=== PATIENT | female | born 1955 | race Two or more races ===

== ENCOUNTER 2021-02-18 11:32 | Outpatient (REF) | payer MEDICAID, SELFPAY ==
--- NOTE | ~2021-02-18 | MM_ITS ---
EXAMINATION: MM SCREENING DIGITAL BREAST TOMOSYNTHESIS, BILATERAL CLINICAL INFORMATION: Screening. Asymptomatic. The lifetime risk of breast cancer based on the Tyrer-Cuzick Model is 5%. COMPARISON: Mammography: 08/01/2018, 07/16/2017, 04/21/2016 TECHNIQUE: Digital breast tomosynthesis is performed in both the craniocaudal and mediolateral oblique views along with computer-aided detection (CAD). Synthesized 2D images are generated from the tomosynthesis. FINDINGS: There are scattered areas of fibroglandular density (ACR BI-RADS breast composition Category b). There are no significant masses, abnormal calcifications, or other abnormalities. Fine fibronodular parenchymal pattern is stable from prior studies. No developing density. There are grouped benign coarse calcifications again seen anterior 12:00 left breast consistent with degenerating fibroadenoma. No significant changes. MM/MM tomosynthesis screening BI IMPRESSION: No mammographic evidence of malignancy. ASSESSMENT: BI-RADS 2: Benign RECOMMENDATION: Routine annual mammography screening. This patient's information was entered into a reminder system with a target due date for their next mammogram.
== END 2021-02-18 11:33 | disposition home or self-care (01) ==
LOC: HO.MAMMO 11:32
PROVIDERS: Visit Provider Family Medicine
DX: Z12.31 Encounter for screening mammogram for malignant neoplasm of breast (principal)
CPT/HCPCS: 77063; 77067

== ENCOUNTER 2021-02-18 12:22 | Outpatient (REF) | payer MEDICAID, SELFPAY ==
--- NOTE | 2021-02-18 | PFT_ITS ---
Forced vital capacity FEV1, [id number], and MVV are all normal. Post bronchodilator therapy, there is no significant change. Total lung capacity and residual volume normal. Diffusion capacity normal. CONCLUSION: Normal pulmonary function test. No obstructive or restrictive pulmonary disease is noted. MD WILLIAM Lam/MODL / [id number]
== END 2021-02-18 12:23 | disposition home or self-care (01) ==
LOC: HO.RESP 12:22
PROVIDERS: PCP Family Medicine; Visit Provider Family Medicine
DX: R05 Cough (principal)
CPT/HCPCS: 94060; 94727; 94729

== ENCOUNTER 2022-01-17 10:54 | Outpatient (REF) | payer MEDICARE, MEDICAID, SELFPAY ==
--- NOTE | ~2022-01-17 | XR_ITS ---
EXAMINATION: XR SHOULDER, RIGHT CLINICAL INFORMATION: Right shoulder pain. COMPARISON: 06/16/2010 TECHNIQUE: AP external rotation, Grashey, scapular Y, and axillary views of the right shoulder. FINDINGS: There is no evidence of acute fracture or dislocation of the right shoulder. There is mild spurring without loss of glenohumeral joint space. There is bony spur at site of insertion of the supraspinatus tendon on the humeral head. Patient has developed a large inferior acromial spur. No widening of the coracoclavicular space is seen. XR/XR shoulder RT min 2V IMPRESSION: No acute fracture or dislocation of the right shoulder. Prominent inferior acromial spur.
== END 2022-01-17 10:55 | disposition home or self-care (01) ==
LOC: HO.XRAY 10:54
PROVIDERS: PCP Internal Medicine; Visit Provider Registered Nurse Community Health
DX: M25.511 Pain in right shoulder (principal)
CPT/HCPCS: 73030

== ENCOUNTER 2022-02-21 13:56 | Outpatient (REF) | payer MEDICARE, MEDICAID, SELFPAY ==
--- NOTE | ~2022-02-21 | MM_ITS ---
EXAMINATION: MM SCREENING DIGITAL BREAST TOMOSYNTHESIS, BILATERAL CLINICAL INFORMATION: Screening. Asymptomatic. The lifetime risk of breast cancer based on the Tyrer-Cuzick Model is 4%. COMPARISON: Mammography: 02/18/2021, 08/01/2018, 07/16/2017 TECHNIQUE: Digital breast tomosynthesis is performed in both the craniocaudal and mediolateral oblique views along with computer-aided detection (CAD). Synthesized 2D images are generated from the tomosynthesis. FINDINGS: There are scattered areas of fibroglandular density (ACR BI-RADS breast composition Category b). There are no significant masses, abnormal calcifications, or other abnormalities. No significant changes from prior exams. The axilla are unremarkable. MM/MM tomosynthesis screening BI IMPRESSION: No mammographic evidence of malignancy. ASSESSMENT: BI-RADS 1: Negative RECOMMENDATION: Routine annual mammography screening. This patient's information was entered into a reminder system with a target due date for their next mammogram.
== END 2022-02-21 13:57 | disposition home or self-care (01) ==
LOC: HO.MAMMO 13:56
PROVIDERS: Visit Provider Family Medicine
DX: Z12.31 Encounter for screening mammogram for malignant neoplasm of breast (principal)
CPT/HCPCS: 77063; 77067

== ENCOUNTER 2022-04-05 11:00 | Outpatient (RCR) | payer MEDICARE, MEDICAID, SELFPAY ==
[2022-03-10 14:11] VITALS: BP 138/63; PULSE 72; O2SAT 97
== END 2022-06-14 15:00 | disposition home or self-care (01) ==
LOC: HO.PT 11:00
PROVIDERS: PCP Internal Medicine; Visit Provider Internal Medicine
DX: M25.511 Pain in right shoulder (principal)
CPT/HCPCS: 97110; 97162

== ENCOUNTER → 2023-02-09 12:50 | Outpatient (REF) | payer MEDICARE, SELFPAY ==
--- NOTE | 2023-02-09 12:54 | CA_ITS ---
Transthoracic Echocardiogram Patient (Last, First, Middle): Dixie Murphy M Gender: Female Date of : 1955 Age: 68 Procedure Date: 02/09/2023 Procedure Type: Transthoracic Echocardiogram Location: OP Height: 160.02 cm Weight: 79.83 kg BSA: 1.83 m2 Heart Rate: bpm BP: 130 / 80 mmHg Mix Chemist: TO Referring MD: Liliya P[place] Symptoms: R42 DIZZINESS WITH EXERTION Study Quality: Fair/Contrast ECG Rhythm: Sinus Conclusions: - The left ventricular systolic function is normal. The calculated ejection fraction is 61% by biplane method. - No obvious valvular pathology seen on this study. Findings Procedure Information Contrast agent, definity, is being given per protocol without apparent complications. Left Ventricle Normal left ventricular cavity size. The left ventricular systolic function is normal. The calculated ejection fraction is 61% by biplane method. There is no evidence of regional wall motion abnormalities. Diastolic function is normal for age. There is mild septal and mild basal asymmetric hypertrophy. Right Ventricle Normal right ventricular cavity size and systolic function. Atria Both atria are normal in size. Aortic Valve There is a normal trileaflet aortic valve. There is no aortic valve stenosis. There is no aortic valve regurgitation. Mitral Valve The mitral valve appears normal. There is no mitral valve regurgitation. There is no mitral valve stenosis. Pulmonic Valve The pulmonic valve is likely normal. Tricuspid Valve Normal tricuspid valve structure. There is trace tricuspid valve regurgitation. There is no evidence of pulmonary hypertension. Great Vessels The asc aorta is normal in size. Venous The inferior vena cava is normal in size and collapses greater than 50% with inspiration. Pericardium/Pleural There is no evidence of pericardial effusion. Prior Study Comparison No prior study available for comparison. Recommendations, Care & Conclusions No obvious valvular pathology seen on this study. Measurements 2D Linear Measurements IVSd: 1.26 0.6-0.9/0.6-1.0 cm LVIDd: 3.98 3.9-5.3/4.2-5.9 cm LVIDd Index: 2.17 2.4-3.2/2.2-3.1 cm/m2 LVIDs: 2.80 2.0-3.6 cm LVPWd: 0.85 0.7-1.1 cm LA Diam: 2.80 2.7-3.8/3.0-4.0 cm LAIDs Index: 1.53 1.5-2.3 cm/m2 LV Mass: 168.76 67-162/88-224 g LV Mass Index: 92.22 43-95/49-115 g/m2 LVOT Diam: 2.00 3.0+(-)1.3 cm 2D Systolic Function EF 4C: 58.50 >55% EF 2C: 62.50 >55% EF BiP: 61.30 >55% Mitral Valve MV Pk E: 0.78 MV PK A: 0.61 MV Decel Time: 177.00 E/A: 1.30 E'Lateral: 10.00 E'Medial: 7.40 E/E' Med: 10.50 E/E' Lat: 7.80 PHT: 52.00 MVA PHT: 4.23 Decel [place]: 4.40 Aortic Valve AoV Pk Louie: 1.23 AoV Mn Louie: 0.82 AoV VTI: 0.24 AoV Pk Grad: 6.00 Aov Mn Grad: 3.00 TINO Cont.VTI: 2.93 LVOT LVOT Pk Louie: 1.12 LVOT Mn Louie: 0.73 LVOT VTI: 0.22 LVOT Pk Grad: 5.00 LVOT Mn Grad: 3.00 LVOT Diam: 2.00 LVOT Area: 3.14 Diastolic Function MV Pk E: 0.78 MV Pk A: 0.61 E/A: 1.30 E'Medial: 7.40 E/E' Med: 10.50 E' Laterial: 10.00 E/E' Lat: 7.80 Right Ventricle TAPSE (mm): 20.70 TVS' Louie: 10.90 Tricuspid Valve RA Press: 3.00 Great Vessels Aorta Sinus of Valsalva: 3.06 2.0-3.5 cm Ao Asc: 2.70 2.1-3.4 cm Updated in Other Vendor System with Status of Final Jb Tavares MD electronically signed on 02/10/2023 1:36:21 PM with status of Final
== END ==
LOC: HO.CARD 12:50
PROVIDERS: PCP Registered Nurse; Visit Provider Registered Nurse
DX: R42 Dizziness and giddiness (principal)
CPT/HCPCS: 93306; Q9957

== ENCOUNTER 2023-02-27 13:43 | Outpatient (REF) | payer MEDICARE, SELFPAY ==
--- NOTE | ~2023-02-27 | MM_ITS ---
EXAMINATION: MM SCREENING DIGITAL BREAST TOMOSYNTHESIS, BILATERAL CLINICAL INFORMATION: Screening. Asymptomatic. The lifetime risk of breast cancer based on the Tyrer-Cuzick Model is 3.7%. COMPARISON: Mammography: This study is compared with prior exams dating back to 2018. TECHNIQUE: Digital breast tomosynthesis is performed in both the craniocaudal and mediolateral oblique views along with computer-aided detection (CAD). Synthesized 2D images are generated from the tomosynthesis. FINDINGS: There are scattered areas of fibroglandular density (ACR BI-RADS breast composition Category b). There are no significant masses, abnormal calcifications, or other abnormalities. MM/MM tomosynthesis screening BI IMPRESSION: No mammographic evidence of malignancy. ASSESSMENT: BI-RADS BI-RADS 1 - Negative RECOMMENDATION: Routine annual mammography screening. 1 year F/U This examination should not preclude the clinical evaluation of a suspicious palpable abnormality. This patient's information was entered into a reminder system with a target due date for their next mammogram.
== END 2023-02-27 13:44 | disposition home or self-care (01) ==
LOC: HO.MAMMO 13:43
PROVIDERS: PCP Registered Nurse; Visit Provider Registered Nurse
DX: Z12.31 Encounter for screening mammogram for malignant neoplasm of breast (principal)
CPT/HCPCS: 77063; 77067

== ENCOUNTER → 2023-02-27 14:00 | Outpatient (BNV) | payer MEDICARE, SELFPAY | PROVIDERS: PCP Registered Nurse; Visit Provider Radiology Diagnostic Radiology | DX: Z12.31 Encounter for screening mammogram for malignant neoplasm of breast (principal) | CPT/HCPCS: 77063; 77067 ==

== ENCOUNTER 2023-03-01 20:52 | Outpatient (REF) | payer MEDICARE, SELFPAY ==
[2023-03-09 03:19] LABS: HPV mRNA E6/E7 rflx Not Detected (Not Detected)
== END 2023-03-01 20:53 | disposition home or self-care (01) ==
LOC: HO.LNP 20:52
PROVIDERS: Visit Provider Registered Nurse
DX: Z12.4 Encounter for screening for malignant neoplasm of cervix (principal); Z11.51 Encounter for screening for human papillomavirus (HPV)
CPT/HCPCS: 87624; 88142

== ENCOUNTER 2023-07-26 10:25 | Outpatient (REF) | payer SELFPAY ==
[2023-07-26 11:30] LABS: MANUAL DIFF FLAG NO
[2023-07-26 11:44] LABS: Basophils Absolute Auto 0.1 X10*3/uL (0.0-0.2); Basophils Percent Auto 0.7 % (0-2); Eosinophils Absolute Auto 0.3 X10*3/uL (0.0-0.4); Eosinophils Percent Auto 4.2 % (0-4); Hematocrit 38.3 % (37.0-47.0); Hemoglobin 12.8 g/dl (12.0-16.0); Imm Gran Abs Auto 0.02 X10*3/uL (0.00-0.03); Imm Gran Pct Auto 0.2 % (0.0-0.4); Lymphocytes Absolute Auto 2.2 X10*3/uL (1.2-4.9); Lymphocytes Percent Auto 27.1 % (20-40); Mean Corpuscular HGB Conc 33.4 g/dl (31.0-35.0); Mean Corpuscular Volume 89.7 fL (80.0-98.0); Mean Platelet Volume 10.7 fL (9.4-12.3); Monocytes Absolute Auto 0.6 X10*3/uL (0.1-1.2); Monocytes Percent Auto 7.2 % (2-11); Neutrophils Absolute Auto 4.8 x10*3/uL (2.0-8.3); Neutrophils Percent Auto 60.6 % (45-73); Platelet Count 278 X10*3/uL (160-400); Red Blood Count 4.27 X10*6/uL (4.20-5.50); Red Cell Distribution Width 12.1 % (11.0-16.0)
[2023-07-26 12:47] LABS: Alanine Aminotransferase 16 U/L (0-31); Albumin Level 4.1 g/dL (3.5-5.0); Alkaline Phosphatase 99 U/L (39-117); Anion Gap 14 (12-20); Aspartate Amino Transferase 18 U/L (5-31); Bilirubin Total 0.7 mg/dL (0.0-1.0); Blood Urea Nitrogen 14 mg/dL (9-16); Calcium 9.6 mg/dL (8.4-10.2); Carbon Dioxide 26 mmol/L (22-29); Chloride 106 mmol/L (96-108); Cholesterol 185 mg/dL (<200); Estimated Glomerular Filt Rate > 60; Glucose Random 87 mg/dL (60-115); HDL Cholesterol 32 mg/dL (>40); LDL Cholesterol Calculated 118 mg/dL (<100); Sodium 142 mmol/L (135-145); Total Protein 8.3 g/dL (6.5-8.0); Triglycerides 177 mg/dL (<150)
[2023-07-26 13:08] LABS: HBc Num1 0.07 S/CO (0.00-0.79); Hepatitis B Core Antibody Nonreactive (Nonreactive); ~HepC Num1 0.14 S/CO (0.00-0.79); ~Hepatitis C Antibody Nonreactive (Nonreactive)
[2023-07-26 13:21] LABS: Folate 15.2 ng/mL (> or = 4.0); Vitamin B12 589 pg/mL (200-900)
[2023-07-26 13:53] LABS: Creatinine Urine 304.65 mg/dL; Microalbum/Creatinine Ratio Ur 8.2 ug/mg cr (<30)
== END 2023-07-26 10:26 | disposition home or self-care (01) ==
LOC: HO.HHCL 10:25
PROVIDERS: Visit Provider Nurse Practitioner
DX: Z00.00 Encounter for general adult medical examination without abnormal findings (principal); E11.9 Type 2 diabetes mellitus without complications; I10 Essential (primary) hypertension
CPT/HCPCS: 36415; 80053; 80061; 82043; 82570; 82607; 82746; 85025; 86704; 86803

== ENCOUNTER 2023-08-30 13:10 | Outpatient (REF) | payer MEDICARE, SELFPAY ==
--- NOTE | ~2023-08-30 | MM_ITS ---
EXAMINATION: BONE DENSITOMETRY CLINICAL INDICATION: Post menopausal. Encounter for screening for osteoporosis. COMPARISON: Previous BD dated 09/09/2009 and baseline BD dated 07/02/2007. TECHNIQUE: Using a [employer] DXA System (software version: 13.1) manufactured by [employer], dual-energy x-ray absorptiometry was performed of the lumbar spine and left hip. The images are of good technical quality. Summary results are attached. FINDINGS: AP SPINE L1-L3 (excluding L4): The data of L1-L4 has been changed to exclude the L4 vertebral body, because degenerative sclerosis at this level may cause overestimation of lumbar spine density. Current: BMD 1.244 g/cm2, Z-score 1.9, T-score 0.6, normal, 3.4% decrease from previous, 8.1% decrease from baseline (<5% change is not significant). Prior: BMD 1.288 g/cm2. Baseline: BMD 1.353 g/cm2. LEFT FEMUR, NECK: Current: BMD 0.969 g/cm2, Z-score 0.9, T-score -0.5, normal. Prior: BMD 1.052 g/cm2. Baseline: BMD 1.108 g/cm2. LEFT FEMUR, TOTAL: Current: BMD 1.008 g/cm2, Z-score 1.1, T-score 0.0, normal, 5.1% decrease from previous, 8.4% decrease from baseline (<5% change is not significant). Prior: BMD 1.062 g/cm2. Baseline: BMD 1.100 g/cm2. IDENTIFIED RISK FACTORS: Secondary osteoporosis (early menopause). HISTORY OF FRACTURE: None listed. MEDICATIONS: Calcium supplement and/or multivitamin. MM/XR DEXA axial skeleton IMPRESSION: 1. DIAGNOSIS: Normal bone density based on the lowest T-score value of -0.5 in the femoral neck applying World Health Organization criteria. 2. 10-YEAR FRACTURE RISK PREDICTION, FRAX: According to the guidelines, FRAX calculation should only be performed on patients in the osteopenia bone density category.?Therefore, FRAX was not performed on this patient.? 3. Treatment Recommendations: NOF guidelines recommend consideration for treatment in postmenopausal women and men age 50 and older presenting with the following: -A hip or vertebral (clinical or morphometric) fracture. -T-score less than or equal to -2.5 at the femoral neck or spine after appropriate evaluation to exclude secondary causes. -Low bone mass at the hip or spine and a 10-year fracture probability by FRAX of greater than or equal to 3% for hip fracture or greater than or equal to 20% for major osteoporotic fracture based on the [place] adapted WHO algorithm. 4. Other Recommendations: All treatment decisions require clinical judgment and consideration of individual patient factors, including patient preferences, comorbidities, previous drug use, risk factors not captured in the FRAX model (e.g. frailty, falls, vitamin D deficiency, increased bone turnover, interval significant decline in bone density) and possible under or overestimation of fracture risk by FRAX. FUTURE SCAN RECOMMENDATION: People with diagnosed cases of osteoporosis or at high risk for fracture should have regular bone mineral density tests. For patients eligible for Medicare, routine testing is allowed once every 2 years. The testing frequency can be increased to one year for patients who have rapidly progressing disease, those who are receiving or discontinuing medical therapy to restore bone mass, or have additional risk factors.
== END 2023-08-30 13:11 | disposition home or self-care (01) ==
LOC: HO.MAMMO 13:10
PROVIDERS: PCP Nurse Practitioner; Visit Provider Nurse Practitioner
DX: Z13.820 Encounter for screening for osteoporosis (principal); Z78.0 Asymptomatic menopausal state
CPT/HCPCS: 77080

== ENCOUNTER 2024-01-02 11:13 | Outpatient (REF) | payer MEDICARE, SELFPAY ==
[2024-01-02 13:58] LABS: Alanine Aminotransferase 16 U/L (0-31); Albumin Level 3.9 g/dL (3.5-5.0); Alkaline Phosphatase 85 U/L (39-117); Anion Gap 13 (12-20); Aspartate Amino Transferase 18 U/L (5-31); Bilirubin Total 0.7 mg/dL (0.0-1.0); Blood Urea Nitrogen 16 mg/dL (9-16); Calcium 9.7 mg/dL (8.4-10.2); Carbon Dioxide 28 mmol/L (22-29); Chloride 103 mmol/L (96-108); Cholesterol 216 mg/dL (<200); Estimated Glomerular Filt Rate > 60; Glucose Random 98 mg/dL (60-115); HDL Cholesterol 37 mg/dL (>40); LDL Cholesterol Calculated 138 mg/dL (<100); Sodium 140 mmol/L (135-145); TSH reflex Free T4 0.62 uIU/mL (0.32-4.0); Total Protein 8.2 g/dL (6.5-8.0); Triglycerides 206 mg/dL (<150)
[2024-01-02 14:23] LABS: Creatinine Urine 261.78 mg/dL; Microalbum/Creatinine Ratio Ur 6.8 ug/mg cr (<30)
== END 2024-01-02 11:14 | disposition home or self-care (01) ==
LOC: HO.HHCL 11:13
PROVIDERS: Visit Provider Nurse Practitioner
DX: E11.9 Type 2 diabetes mellitus without complications (principal); I10 Essential (primary) hypertension
CPT/HCPCS: 36415; 80053; 80061; 82043; 82570; 84443

== ENCOUNTER → 2024-01-07 11:45 | Outpatient (BNVA) | payer MEDICARE, SELFPAY | PROVIDERS: PCP Nurse Practitioner; Visit Provider Nurse Practitioner Family ==

== ENCOUNTER 2024-02-29 13:23 | Outpatient (REF) | payer MEDICARE, SELFPAY ==
--- NOTE | ~2024-02-29 | MM_ITS ---
EXAMINATION: MM SCREENING DIGITAL BREAST TOMOSYNTHESIS, BILATERAL CLINICAL INFORMATION: Screening. Asymptomatic. COMPARISON: Mammography: This study is compared with prior exams dating back to 2018. TECHNIQUE: Digital breast tomosynthesis is performed in both the craniocaudal and mediolateral oblique views along with computer-aided detection (CAD). Synthesized 2D images are generated from the tomosynthesis. FINDINGS: There are scattered areas of fibroglandular density (ACR BI-RADS breast composition Category b). There are no significant masses, abnormal calcifications, or other abnormalities. A small amount of coarse, benign calcification is present in each breast. MM/MM tomosynthesis screening BI IMPRESSION: No mammographic evidence of malignancy. ASSESSMENT: BI-RADS BI-RADS 2 - Benign Findings RECOMMENDATION: Routine annual mammography screening. 1 year F/U This examination should not preclude the clinical evaluation of a suspicious palpable abnormality. This patient's information was entered into a reminder system with a target due date for their next mammogram.
== END 2024-02-29 13:24 | disposition home or self-care (01) ==
LOC: HO.MAMMO 13:23
PROVIDERS: Visit Provider Nurse Practitioner
DX: Z12.31 Encounter for screening mammogram for malignant neoplasm of breast (principal)
CPT/HCPCS: 77063; 77067

== ENCOUNTER → 2024-02-29 13:45 | Outpatient (BNV) | payer MEDICARE, SELFPAY | PROVIDERS: Visit Provider Radiology Diagnostic Radiology | DX: Z12.31 Encounter for screening mammogram for malignant neoplasm of breast (principal) | CPT/HCPCS: 77063; 77067 ==

== ENCOUNTER 2024-03-28 14:22 | Outpatient (REF) | payer MEDICARE, SELFPAY ==
[2024-03-28 16:35] LABS: Anion Gap 13 (12-20); Blood Urea Nitrogen 16 mg/dL (9-16); Carbon Dioxide 28 mmol/L (22-29); Chloride 104 mmol/L (96-108); Estimated Glomerular Filt Rate > 60; Glucose Random 88 mg/dL (60-115); Potassium 3.9 mmol/L (3.3-5.1); Sodium 141 mmol/L (135-145)
== END 2024-03-28 14:23 | disposition home or self-care (01) ==
LOC: HO.HHCL 14:22
PROVIDERS: Visit Provider Nurse Practitioner
DX: R25.2 Cramp and spasm (principal)
CPT/HCPCS: 36415; 80048

== ENCOUNTER 2024-09-17 10:09 | Outpatient (REF) | payer MEDICARE, SELFPAY ==
[2024-09-17 11:55] LABS: Anion Gap 11 (12-20); Blood Urea Nitrogen 15 mg/dL (9-16); Calcium 9.6 mg/dL (8.4-10.2); Carbon Dioxide 28 mmol/L (22-29); Chloride 105 mmol/L (96-108); Cholesterol 116 mg/dL (<200); Estimated Glomerular Filt Rate > 60; Glucose Random 97 mg/dL (60-115); HDL Cholesterol 33 mg/dL (>40); LDL Cholesterol Calculated 60 mg/dL (<100); Potassium 4.2 mmol/L (3.3-5.1); Sodium 140 mmol/L (135-145); Triglycerides 118 mg/dL (<150)
== END 2024-09-17 10:10 | disposition home or self-care (01) ==
LOC: HO.HHCL 10:09
PROVIDERS: Visit Provider Nurse Practitioner
DX: I10 Essential (primary) hypertension (principal); E11.9 Type 2 diabetes mellitus without complications
CPT/HCPCS: 36415; 80048; 80061

== ENCOUNTER 2025-01-07 11:52 | Outpatient (REF) | payer MEDICARE, SELFPAY ==
--- OUTSIDE RECORDS SUMMARY | 2025-01-07 13:01 | XMS_ITS | Encounter Summary ---
Author Organization [employer] Address [address] [facility] [address] [place] [address] Care Team Providers Care Jig Bore Operator Name Role Phone Daija Concepcion NP Primary Care Provider [phone] Reason for Visit * Reason Comments Follow-up Encounter Details Date Type Department Care Team ([facility] st Contact Info) Description 01/07/2025 11:00 AM EDT Office Visit [facility] [address] [place] [address] Daija Concepcion NP [address] [place] [address] Essential hypertension (Primary Dx); Type 2 diabetes mellitus without complication, without long-term current use of insulin ([facility]); Routine adult health maintenance Social History Tobacco Use Types Packs/Day Years Used Date Smoking Tobacco: Never Passive Smoke Exposure: Past Smokeless Tobacco: Never Comments:Mother smoke a lot when she was little Alcohol Use Standard Drinks/Week Comments Never 0 (1 standard drink = 0.6 oz pur e alcohol) Depression Answer Date Recorded Patient Health Questionnaire-9 Score 1 01/07/2025 Patient Health Questionnaire-9 Score 1 01/07/2025 Last PHQ-9: Questionnaire Data Not on file 0 01/07/2025 Housing Stability Answer Date Recorded What is your housing situation today? I have alejandro alvarado 01/07/[address] you li ve. Do you have problems with any of the following? None of the above 01/07/2025 Food Insecurity Answer Date Recorded Within the past 12 months, y ou worried that your food would run out before you got money to buy more: Sometimes True 2024 Within the past 12 months,th e food you bought just didn't last and you didn't have enough money to get more: Never True 01/07/2025 Transportation Answer Date Recorded In the past 12 months, has l ack of transportation kept you from medical appts, meetings, work or from getting things needed for daily living? No 01/07/2025 Utilities Answer Date Recorded In the past 12 months, has t he electric, gas, oil or water company threatened to shut off services in your home? No 01/07/2025 Depression Answer Date Recorded Patient Health Questionnaire-2 Score 0 01/07/2025 Internet Access Answer Date Recorded Internet Access Q1 Yes 01/07/2025 Internet Access Q2 Not on file 01/07/2025 Comments Unknown Sex and Gender Information Value Date Recorded Sex Assigned at Female 06/19/2022 10:14 AM EDT Legal Sex Female 10:14 AM EDT Gender Identity Female 06/19/2022 10:14 AM EDT Sexual Orientation Don't know 06/19/2022 10 :14 AM EDT documented as of this encounter Last Filed Vital Signs Vital Sign Reading Time Taken Comments Blood Pressure 139/77 01/07/2025 11:06 AM EDT Pulse 90 01/07/2025 11:06 AM EDT Temperature 37 ??C (98.6 ??F) 01/07/2025 11:06 AM EDT Respiratory Rate 20 01/07/2025 11:06 AM EDT Oxygen Saturation 98% 01/07/2025 11:06 AM EDT Inhaled Oxygen Concentration - - Weight 69.6 kg (153 lb 6.4 oz) 01/07/2025 11:06 AM EDT Height 160 cm (5' 3 ) 01/07/2025 11:06 AM EDT Body Mass Index 27.17 01/07/2025 11:06 AM EDT documented in this encounter Functional Status * Over the past 2 weeks, how often have you been bothered by any of the following problems? Question Answer Date of Assessment Author Patient Health Questionnaire -2 Score 0 01/07/2025 11:43 AM EDT Cailin Ramos MA * Little interest or pleasure in doing things Answer Date of Assessment Author Not at all 01/07/2025 11:43 AM EDT Cailin Ramos MA * Feeling down, depressed, or hopeless Answer Date of Assessment Author Not at all 01/07/2025 11:43 AM Cailin Roman MA * Trouble falling or staying asleep, or sleeping too much Answer Date of Assessment Author Several days 01/07/2025 11:43 AM Cailin Roman MA * Feeling tired or having little energy Answer Date of Assessment Author Not at all 01/07/2025 11:43 AM Cailin Roman MA * Poor appetite or overeating Answer Date of Assessment Author Not at all 01/07/2025 11:43 AM Cialin Roman MA * Feeling bad about yourself - or that you are a failure or have let yourself or your family down Answer Date of Assessment Author Not at all 01/07/2025 11:43 AM Cailin Roman MA * Trouble concentrating on things, such as reading the newspaper or watching television Answer Date of Assessment Author Not at all 01/07/2025 11:43 AM Cailin Roman MA * Moving or speaking so slowly that other people could have noticed? Or the opposite - being so fidgety or restless that you have been moving around a lot more than usual. Answer Date of Assessment Author Not at all 01/07/2025 11:43 AM Cailin Roman MA * Thoughts that you would be better off or hurting yourself in some way Answer Date of Assessment Author Not at all 01/07/2025 11:43 AM Cailin Roman MA * Patient Health Questionnaire-9 Score Answer Date of Assessment Author 1 01/07/2025 11:43 AM Cailin Roman MA * How difficult have these problems made it for you to do your work, take care of things at home, or get along with other people? Answer Date of Assessment Author Not difficult at all 01/07/2025 11:43 AM Cailin Mann MA * Over the last 2 weeks, how often have you been bothered by any of the following problems? Question Answer Date of Assessment Author Feeling nervous, anxious, or on edge 0 01/07/2025 11:43 AM EDT Cailin Ramos MA Not being able to stop or co ntrol worrying 0 01/07/2025 11:43 AM EDT Cailin Ramos MA Worrying too much about diff erent things 1 01/07/2025 11:43 AM EDT Cailin Ramos MA Trouble relaxing 0 01/07/2025 11:43 AM EDT Cailin Ramos MA Being so restless that it is hard to sit still 0 01/07/2025 11:43 AM EDT Cailin Ramos MA Becoming easily annoyed or irritable 0 01/07/2025 11:43 AM EDT Cailin Ramos MA Feeling afraid as if somethi ng awful might happen 0 01/07/2025 11:43 AM EDT Cailin Ramos MA YOANDY-7 Total Score 1 01/07/2025 11:43 AM EDT Cailin Ramos MA documented as of this encounter Plan of Treatment Upcoming Encounters Date Type Department Care Team (Late st Contact Info) Description 01/09/2025 11:00 AM EDT Nurse Only [facility] [address] [place] [address] Scheduled Orders Name Type Priority Associated Diagnoses Orde r Schedule Basic Metabolic Panel Lab Routine Essential hypertension Type 2 diabetes mellitus without complication, without long-term current use of insulin ([facility]) Expected: 01/07/2025 (Approximate), Expires: 01/07/2026 Albumin, Random Urine W/Creatinine Lab Routine Essential hypertension Type 2 diabetes mellitus without complication, without long-term current use of insulin ([facility]) Expected: 01/07/2025 (Approximate), Expires: 01/07/2026 documented as of this encounter Procedures Procedure Name Priority Date/Time Associated Diagnosis Comments POCT GLYCATED HEMOGLOBIN, TOTAL Routine 01/07/2025 11:35 AM EDT Type 2 diabetes mellitus without complication, without long-term current use of insulin ([facility]) POCT GLUCOSE Routine 01/07/2025 11:34 AM EDT Type 2 diabetes mellitus without complication, without long-term current use of insulin ([facility]) documented in this encounter Results * POCT HGB A1C (01/07/2025 11:35 AM EDT) Hemoglobin A1C 5.6 4.0 - 6.0 % QC Media Lot # [id number] Lot# Expiration Date Blood 01/07/2025 11:3 5 AM EDT us Daija Concepcion NP POINT OF CARE TEST ENTER/EDIT O RDERABLES Final Result * POCT Glucose (01/07/2025 11:34 AM EDT) Glucose Blood, POC 125 60 - 200 mg/dL QC Media Lot # [id number] Lot# Expiration Date Blood Capillary blood specimen / Unknown 01/07/2025 11:34 AM EDT us Daija Concepcion NP POINT OF CARE TEST ENTER/EDIT O RDERABLES Final Result documented in this encounter Visit Diagnoses Diagnosis Essential hypertension- Primary Unspecified essential hypertension Type 2 diabetes mellitus without complication, without long-term current use of insulin ([facility]) Routine adult health maintenance documented in this encounter Additional Health Concerns Assessment Noted Time PHQ-9 Depression Total Score: 1 01/08/20 25 11:43 AM EDT documented as of this encounter Care Teams Jig Bore Operator Relationship Specialty Start Date End Date Daija Concepcion NP [address] [place] [phone] PCP - General Family Medicine 05/25/23 documented as of this encounter
--- OUTSIDE RECORDS SUMMARY | 2025-01-07 13:01 | XMS_ITS | Encounter Summary ---
Author Organization [employer] Address [address] [place] [address] [place] [address] Care Team Providers Care Generator Assembler Name Role Phone Liliya Martinez Primary Care Provider [phone] Daija Concepcion NP Primary Care Provider [phone] Encounter Details Date Type Department Care Team ([facility] Contact Info) Description 03/27/2023 Abstract [facility] [address] [place] [id number] Liliya Martinez FNP [address] [place] [address] Dept [place] [address] Social History Tobacco Use Types Packs/Day Years Used Date Smoking Tobacco: Never Passive Smoke Exposure: Past Smokeless Tobacco: Never Comments:Mother smoke a lot when she was little Alcohol Use Standard Drinks/Week Comments Never 0 (1 standard drink = 0.6 oz pur e alcohol) Comments Unknown Sex and Gender Information Value Date Recorded Sex Assigned at Female 06/19/2022 10:14 AM EDT Legal Sex Female 10:14 AM EDT Gender Identity Female 06/19/2022 10:14 AM EDT Sexual Orientation Don't know 06/19/2022 10 :14 AM EDT documented as of this encounter Plan of Treatment Upcoming Encounters Date Type Department Care Team ([facility] Contact Info) Description 01/09/2025 11:00 AM EDT Nurse Only [facility] [address] [place] [id number] documented as of this encounter Visit Diagnoses Not on filedocumented in this encounter Care Teams Generator Assembler Relationship Specialty Start Date End Date Liliya Martinez FNP PCP - General Family Medicine 02/17/22 05/24/23 Daija Concepcion NP [address] [place] [id number] PCP - General Family Medicine 05/25/23 documented as of this encounter
--- OUTSIDE RECORDS SUMMARY | 2025-01-07 13:01 | XMS_ITS | Encounter Summary ---
Author Organization [employer] Address [address] [facility] [address] [place] [address] Care Team Providers Care Sander Operator Name Role Phone Daija Concepcion NP Primary Care Provider [phone] Reason for Visit * Reason Onset Date Comments CHART PREP 01/06/2025 Encounter Details Date Type Department Care Team ([facility] st Contact Info) Description 01/06/2025 Telephone [facility] [address] [place] [address] Daija Concepcion NP [address] [place] [address] CHART PREP Social History Tobacco Use Types Packs/Day Years [...] AM EDT documented as of this encounter Miscellaneous Notes * Telephone Encounter - Art Shelton MA - 01/06/2025 2:12 PM EDT Chart Prep Labs: not applicable Images: not applicable Referrals: complete [facility] appt 01/06/25 notes not ready Vaccines due: Covid and DTAP Screenings: colonoscopy and mammogram Overdue care gaps: A1c, Glucose, SBIRT, SDOH, YOANDY-7, and Oral health screening documented in this encounter Plan of Treatment Upcoming Encounters Date Type Department Care Team (Late st Contact Info) Description 01/09/2025 11:00 AM EDT Nurse Only [facility] [address] [place] [address] documented as of this encounter Visit Diagnoses Not on filedocumented in this encounter Additional Health Concerns Assessment Noted Time PHQ-9 Depression Total Score: 0 07/25/20 10:00 AM EST documented as of this encounter Care Teams Sander Operator Relationship Specialty Start Date End Date Daija Concepcion NP [address] [place] [address] PCP - General Family Medicine 05/25/23 documented as of this encounter
--- OUTSIDE RECORDS SUMMARY | 2025-01-07 13:01 | XMS_ITS | Encounter Summary ---
Author Organization [employer] Address [address] [facility] [address] [place] [address] Care Team Providers Care Fire Prevention Research Engineer Name Role Phone Liliya Martinez Primary Care Provider [phone] Daija Concepcion NP Primary Care Provider [phone] Encounter Details Date Type Department Care Team (Late st Contact Info) Description 11/15/2022 Orders Only [facility] [address] [place] [address] Cristin Carrasquillo LPN Social History Tobacco Use Types Packs/Day Years Used Date Smoking Tobacco: Never Assessed Comments Unknown Sex and Gender Information Value [...] Description 01/09/2025 11:00 AM EDT Nurse Only [facility] [address] [place] [address] documented as of this encounter Visit Diagnoses Not on filedocumented in this encounter Care Teams Fire Prevention Research Engineer Relationship Specialty Start Date End Date Liliya Martinez FNP PCP - General Family Medicine 02/17/22 05/24/23 Daija Concepcion NP [address] [place] [address] PCP - General Family Medicine 05/25/23 documented as of this encounter
--- OUTSIDE RECORDS SUMMARY | 2025-01-07 13:01 | XMS_ITS | Clinical Summary ---
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 Active multivitamin-ir cj-pdjikfpt-mpb ic acid (Centrum) chewable tablet Chew 1 tablet in the morning. Active loratadine (Claritin) 10 MG tabletIndicatio ns:Seasonal allergies Take 1 tablet (10 mg) by mouth in the morning. 90 tablet 1 01/20/20 23 Active Blood Glucose Monitoring Suppl (FreeStyle Jackson Lite) w/Device kitIndications: Type 2 diabetes mellitus without complication, without long-term current use of insulin (CMS/HCC) Use to test blood sugar one times daily 1 kit 1 12/19/19 24 Active FREESTYLE LITE test stripIndication s:Type 2 diabetes mellitus without complication, without long-term current use of insulin (CMS/HCC) Use to test blood sugar one times daily 100 each 12 03/28/20 24 025 Active Alcohol Swabs (Alcohol Prep) 70 % padsIndications :Type 2 diabetes mellitus without complication, without long-term current use of insulin (CMS/HCC) USE TO TEST BLOOD SUGAR ONCE DAILY 100 each 11 07/11/20 24 Active FreeStyle lancetsIndicati ons:Type 2 diabetes mellitus without complication, without long-term current use of insulin (CMS/HCC) USE TO TEST BLOOD SUGAR ONE TIME DAILY 100 each 11 07/11/20 24 Active metFORMIN (Glucophage) 500 MG tabletIndicatio ns:Type 2 diabetes mellitus without complication, without long-term current use of insulin (CMS/HCC) Take 1 tablet (500 mg) by mouth with breakfast and with evening meal. 180 tablet 09/10/19 25 Active amLODIPine (Norvasc) 5 MG tablet TAKE 1 TABLET(5 MG) BY MOUTH DAILY 90 tablet 10/23/19 25 Active atorvastatin (Lipitor) 10 MG tablet TAKE 1 TABLET(10 MG) BY MOUTH DAILY 90 tablet 10/23/19 25 Active hydroCHLOROthia zide 12.5 MG tabletIndicatio ns:Essential hypertension TAKE 1 TABLET(12.5 MG) BY MOUTH DAILY 90 tablet 1 12/23/19 25 Active aspirin 81 MG chewable tabletIndicatio ns:Essential hypertension CHEW AND SWALLOW 1 TABLET(81 MG) BY MOUTH DAILY 90 tablet 1 12/23/19 25 Active hydroCHLOROthia zide (HYDRODiuril) 12.5 MG tabletIndicatio ns:Essential hypertension Take 1 tablet (12.5 mg) by mouth Once per day. 30 tablet 11 12/19/19 24 025 Discontinued(Re order (will not trigger notification to Pharmacy)) aspirin 81 MG chewable tabletIndicatio ns:Essential hypertension Chew 1 tablet (81 mg) Once per day. 30 tablet 2 09/10/19 25 025 Discontinued(Re order (will not trigger notification to Pharmacy)) Active Problems Problem Noted Date Diagnosed Date Screening for colon cancer 09/10/2024 Assessment & Plan (09/10/2024 11:06 AM EST): -patient agreeable to screening with cologuard -counseled on 13% false positive and 8% false negative rate and is aware that if the test is positive a diagnostic colonoscopy should be pursued within 3-6 months. -patient informed of need to repeat test in 3 years if negative result -cologuard order placed Mixed hyperlipidemia 09/10/2024 Assessment & Plan (09/10/2024 12:24 PM EST): -repeat fasting labs ordered -continue lipitor 10 mg. Plan to increase dose if no improvement noted Neck mass 03/10/2024 Assessment & Plan (03/10/2024 1:06 PM EDT): -question adenoma, thyroid goiter or lipoma -patient states she noticed it 5 years ago and has had a biposy -will check TSH today -consider soft tissue US with increase in size or characteristics Skin eruption 07/25/2023 Assessment & Plan (07/25/2023 1:45 PM EST): -treated with cefadroxil 500 mg BID x5 days for eruptions on upper arm -eruption on gluteus appears benign -apply warm compress to area. Return to clinic if area is red, increase in size, or drainage present Routine adult health maintenance 01/19/2023 Overview (04/05/2023): Mammogram: 02/27/23 BIRADS 1 Assessment & Plan (12/18/2023 9:19 PM EDT): -Mammogram: 02/27/2023: BI-RADS BI-RADS 1 - Negative -Cervical cancer screenin03/06/2023: Negative for intraephithelial lesion or malignancy; HPV negative -Colonoscopy: has GI appointment 01/07/2024 -Dexa Scan: 08/30/2023: Normal bone density based on T-score -0.5 -Hepatitis C Screen: -HIV Screen: -Immunizations: PCV 20 VAX -Screening Labs: Assessment & Plan (07/25/2023 1:24 PM EST): -last pap 03/06/23 -due for repeat colonoscopy. GI referral placed -DEXA scan ordered for osteoporosis screening -obtained flu shot at [facility]. Will bring documentation to next appointment -RSV vax order sent to [facility]. PCV20 vax received in [place] today -Hepatitis B & C screen ordered today -referred for Seasonal allergies 01/19/2023 Heartburn 01/19/2023 Type 2 diabetes mellitus wit hout complication, without long-term current use of insulin 01/19/2023 Assessment & Plan (09/10/2024 12:20 PM EST): -controlled -A1c 5.7% today and POCT 98 mg/dL -continue current regimen: metformin 500 mg two times daily -diet and exercise reviewed -foot exam completed today with negative results -routine vision screening encouraged -follow-up 3 months Assessment & Plan (03/31/2024 10:23 PM EDT): -patient's diabetes is well controlled -A1c at goal of <7%. POCT A1c 5.7% today; glucose 102 mg/dL -continue metformin 500 mg two times daily -patient is on statin and continues to tolerate well -foot exam completed today. Daily self monitoring encouraged -refills provided for testing supplies -importance of healthy diet and exercise emphasized -follow-up 6 months Assessment & Plan (03/10/2024 12:40 PM EDT): -patients diabetes is well controlled -A1c at goal of <7%. POCT A1c 5.8% today -continue metformin 500 mg two times daily -patient is on statin and continues to tolerate well -encouraged to schedule for routine eye exam with vision provider -foot exam to be completed at next visit. Daily self monitoring advised -refills provided for testing supplies -follow-up 3 months Assessment & Plan (07/25/2023 1:28 PM EST): -Treatment goal >7% per ADA guideline -POCT A1c 5.8 today -stable, continue current regimen -daily foot exams encouraged -Healthy diet and exercise teaching completed: Eat a variety of fruit and vegetables, whole grains such as whole-wheat flour, bulgur (cracked wheat), oatmeal, and brown rice. Intake protein from beans, nuts, fish, and lean meats. Eat low-fat or fat- free dairy products. Limit highly processed foods such as hot dogs, sandwich meat, etc. Engage in minimum of 150 min of moderate intensity exercise weekly -f/u in 3 months Dizziness 01/19/2023 Overview (02/20/2023): 02/09/23 Echo: Conclusions: - The left ventricular systolic function is normal. The calculated ejection fraction is 61% by biplane method. - No obvious valvular pathology seen on this study. Trace tricuspic regurg Essential hypertension 01/12/2023 Assessment & Plan (09/10/2024 12:24 PM EST): -BP stable but above desired goal of <130/80 mmHg -advised two times daily monitoring at home -scheduled 1 week follow-up with nurses with plan to increase amlodipine to 10 mg if home readings persistently elevated more than 50% of the time -discussed low salt/low fat diet -discussed starting low dose aspirin for primary prevention -follow-up 4 months Assessment & Plan (03/10/2024 1:10 PM EDT): -BP above target goal of <130/80 mmHg -elevated office readings today -continue amlodipine 5mg and start hydrochlorothiazide 12.5 mg today -microalbumin: ordered today -daily BP monitoring advised -low salt diet and 30 min moderate intensity daily exercise recommended -Reviewed ED precautions to include chest pain, shortness of breath, severe headache, sudden vision changes or BP >=180/>=120 mmHg. -Call clinic if three or more BP readings >130/80 mmHg. -follow-up with team nurses for BP check in 2 weeks and complete labs -follow-up 3 months Assessment & Plan (07/25/2023 1:38 PM EST): -Not at goal: treatment goal BP <130/80 mmHg (ACC/AHA) -continue amlodipine 5 mg every day -diet & exercise teaching completed as outline below. Advised to eliminate salt from diet -encouraged to monitor and daily home BP readings -labs ordered to eval renal function -f/u in 3 months Resolved Problems Problem Noted Date Diagnosed Date Resolved Date Shoulder pain 01/12/2023 01/19/2023 Infestation by Sarcoptes scabiei calista hominis 3 01/19/2023 Encounters Date Type Department Care Team Description 01/07/2025 11:00 AM EDT Office Visit [facility] [address] [place] [address] Daija Concepcion NP Essential hypertension (Primary Dx); Type 2 diabetes mellitus without complication, without long-term current use of insulin ([facility]); Routine adult health maintenance 01/07/2025 Travel 01/06/2025 Telephone [facility] [address] [place] [address] Daija Concepcion NP CHART PREP 01/06/2025 Travel 12/19/2024 Telephone [facility] [address] [place] [address] Daija Concepcion NP Med Refill 12/19/2024 Refill [facility] [address] [place] [address] Daija Concepcion NP Essential hypertension 10/31/2024 Population Health Risk Score [facility] () Department [address] [place] [phone] Provider, Population Health Generic 10/22/2024 Refill [facility] [address] [facility] [place] [address] Daija Concepcion NP from Last 3 Months Immunizations Immunization Administration Dates Next Due Influenza High-dose Quadriva lent Preservative Free 05/26/2022 Influenza Quadrivalent Adjuvanted 05/23/2023 Influenza injectable quadriv alent IIV4 with preservative 07/01/2018,06/29/2017,04/24/2016 Influenza injectable quadriv alent preservative free 05/20/2021,05/07/2020 Moderna Covid-19 Vaccine 12+ 12/29/2020,12/02/19 21 Pneumococcal Conjugate PCV 20 07/25/2023 TD (adult), 2 Lf tetanus tox oid, preservative free, adsorbed 03/28/2024 Td (adult), 5 Lf tetanus tox oid, preservative free, adsorbed 05/05/2006 Zoster, Recombinant 05/07/2020 Family History Medical History Relation Name Comments Cancer Brother Heart disease Mother Hypertension Mother Relation Name Status Comments Brother Mother Social History Tobacco Use Types Packs/Day Years Used Date Smoking Tobacco: Never Passive Smoke Exposure: Past Smokeless Tobacco: Never Tobacco Cessation:Counseling Given: Not Answered Comments:Mother smoke a lot when she was [...] Don't know 06/19/2022 10 :14 AM EDT Last Filed Vital Signs Vital Sign Reading [...] Mass Index 27.17 01/07/2025 11:06 AM EDT Plan of Treatment Upcoming Encounters Date Type Department Care Team (Late st Contact Info) Description 01/09/2025 11:00 AM EDT Nurse Only [facility] [address] [place] [address] Health Maintenance Due Date Last Done Comments CT Colonography 1955 Colonoscopy 1955 FIT 1955 FOBT 1955 Sigmoidoscopy 1955 Alcohol/Substance Use Screening 1969 Zoster Vaccines (2 of 2) 07/02/2020 05/07/2020 DTaP/Tdap/Td Vaccines (1 - Tdap) 03/29/2024 03/28/2024, 05/05/2006 COVID-19 Vaccine (3 - 2023- season) 2024 12/29/2020, 12/01/2020 Diabetes: Urine Protein Screening 01/01/2025 01/02/2024 Mammogram 02/28/2025 02/29/2024, 02/17, 02/27/2023, Additional history exists Diabetes: Hemoglobin A1C 07/10/2025 025, 09/10/2024, 03/28/2024, Additional history exists Eye Exam 08/03/2025 08/03/2023, 07/20, 08/03/2023, Additional history exists Diabetes: Foot Exam 09/10/2025 09/10/2024, 09/10/2024, 09/10/2024, Additional history exists Lipid Panel 09/17/2025 09/17/2024, 12/18, 07/24/2022 Tobacco Screening 09/17/2025 09/17/2024 Depression Screening 01/07/2026 01/07/2025, 01/08/20 25 SDOH Screening 01/07/2026 01/07/2025 Colorectal Cancer Screening 09/19/2027 FIT DNA/Cologuard 09/19/2027 09/19/2024 RSV Patients and Patients Aged 60 years or older (1 - 1-dose 75+ series) 01/04/2032 Hepatitis C Screening Completed 07/24/2022 HPV/Cotest Discontinued 03/01/2023 Cervical Cancer Screening Discontinued Pap Smear Discontinued 03/06/2023, 03/01/2023 Pneumococcal Vaccine: 50+ Years Completed 07/25/2023 Influenza Vaccine Completed 05/05/2024, , 05/26/2022, Additional history exists HIB Vaccines Aged Out No longer eligi ble based on patient's age to complete this topic HPV Vaccines Aged Out No longer eligi ble based on patient's age to complete this topic Hepatitis A Vaccines Aged Out No long er eligible based on patient's age to complete this topic Hepatitis B Vaccines Aged Out No long er eligible based on patient's age to complete this topic IPV Vaccines Aged Out No longer eligi ble based on patient's age to complete this topic Meningococcal B Vaccine Aged Out No l onger eligible based on patient's age to complete this topic Meningococcal Vaccine Aged Out No edu rogers eligible based on patient's age to complete this topic RSV under 20 months Aged Out No longe r eligible based on patient's age to complete this topic Rotavirus Vaccines Aged Out No longer eligible based on patient's age to complete this topic Procedures Procedure Name Priority Date/Time Associated Diagnosis Comments POCT GLYCATED HEMOGLOBIN, TOTAL Routine 01/07/2025 11:35 AM EDT Type 2 diabetes mellitus without complication, without long-term current use of insulin (CMS/HCC) POCT GLUCOSE Routine 01/07/2025 11:34 AM EDT Type 2 diabetes mellitus without complication, without long-term current use of insulin (CMS/HCC) LAB COLOGUARD?? COLON CANCER SCREEN Routine 09/19/2024 11:53 AM EST Screening for colon cancer LIPID PANEL, STANDARD Routine 09/17/2024 10:11 AM EST Essential hypertension Type 2 diabetes mellitus without complication, without long-term current use of insulin (CMS/HCC) Mixed hyperlipidemia BI MAMMOGRAM SCREENING TOMOSYNTHESIS BILATERAL Routine 02/29/2024 1:44 PM EDT ALBUMIN, RANDOM URINE W/CREATININE Routine 01/02/2024 11:14 AM EDT Essential hypertension HM PAP/HPV Routine 03/06/2023 HPV MRNA E6/E7 REFLEX TO HPV 16, 18/45 Routine 03/01/2023 4:00 PM EDT HEPATITIS C AB W/REFL TO HCV RNA, QN, PCR Routine 07/24/2022 10:19 AM EST from Last 3 Months or Most Recently Relevant to Health Maintenance Results * POCT HGB A1C (01/07/2025 11:35 AM EDT) Hemoglobin A1C 5.6 4.0 - 6.0 % QC Media Lot # [id number] Lot# Expiration Date Blood 01/07/2025 11:3 5 AM EDT Daija Concepcion NP POINT OF CARE TEST ENTER/EDIT O RDERABLES Final Result * POCT Glucose (01/07/2025 11:34 AM EDT) Glucose Blood, POC 125 60 - 200 mg/dL QC Media Lot # [id number] Lot# Expiration Date Blood Capillary blood specimen / Unknown 01/07/2025 11:34 AM EDT us Daija Concepcion NP POINT OF CARE TEST ENTER/EDIT O RDERABLES Final Result * (ABNORMAL) Cologuard?? colon cancer screening (09/19/2024 11:53 AM EST) Cologuard Result Positive( A) Negative 09/27/2024 4:11 AM EST [facility] (CLIA #:[id number]) Comment: POSITIVE TEST RESULT. A positive Cologuard result should be followed with a colonoscopy or visual examination of the colon. The normal value (reference range) for this assay is negative. TEST DESCRIPTION: Composite algorithmic analysis of stool DNA-biomarkers with hemoglobin immunoassay. ?? Quantitative values of individual biomarkers are not reportable and are not associated with individual biomarker result reference ranges. Cologuard is intended for colorectal cancer screening of adults of either sex, 45 years or older, who are at average-risk for colorectal cancer (CRC). Cologuard has been approved for use by the U.S. FDA. The performance of Cologuard was established in a cross sectional study of average-risk adults aged 50-84. Cologuard performance in patients ages 45 to 49 years was estimated by sub-group analysis of near-age groups. Colonoscopies performed for a positive result may find as the most clinically significant lesion: colorectal cancer [4.0%], advanced adenoma (including sessile serrated polyps greater than or equal to 1cm diameter) [20%] or non- advanced adenoma [31%]; or no colorectal neoplasia [45%]. These estimates are derived from a prospective cross-sectional screening study of 10,000 individuals at average risk for colorectal cancer who were screened with both Cologuard and colonoscopy. (Naeem Collins et al, N Engl J Med 2014;370(14):9726-7490.) Cologuard may produce a false negative or false positive result (no colorectal cancer or precancerous polyp present at colonoscopy follow up). A negative Cologuard test result does not guarantee the absence of CRC or advanced adenoma (pre-cancer). The current Cologuard screening interval is every 3 years. ([place] [employer] Society and U.S. Multi-Society Task Force). Cologuard performance data in a 10,000 patient pivotal study using colonoscopy as the reference method can be accessed at the following location: www.[employer]/results. Additional description of the Cologuard test process, warnings and precautions can be found at www.Access [email or web address].[email or web address]. Stool specimen (specimen) 09/19/2024 11:53 AM EST 09/20/2024 12:33 PM EST [facility] MOLECULAR DIAGNOSTICS ORDER IMANI Final Result [facility] (CLIA #:[id number]) [address] [place], [place] [address], * (ABNORMAL) Lipid Panel, Standard (09/17/2024 10:11 AM EST) Triglycerides 118 <150 mg/dL [facility] Comment:Desirable Triglyceri de: less than 150 mg/dLBorderline High Triglyceride 150-199 mg/dLHigh Triglyceride: 200-499 mg/dLVery High Triglyceride: greater than or equal to 5OO mg/dL Cholesterol 116 <200 mg/dL [facility] Comment:Desirable Cholestero l: less than 200 mg/dLBorderline High Cholesterol: 200-239 mg/dLHigh Cholesterol: greater than 239 mg/dL LDL Cholesterol Calculated 60 <100 mg/dL [facility] Comment:Desirable LDL: less than 100 mg/dLNear Optimal/Above Optimal LDL: 110- 129 mg/dLBorderline High LDL: 130-159 mg/dLHigh LDL: 160-189 mg/dLVery High LDL: greater than or equal to 190 mg/dL HDL Cholesterol 33(L) >40 mg/dL [facility] Comment:Desirable HDL: great er than 40 mg/dL Note: This HDL assay may give artificially low results in patients with liver disease. Blood Venous blood specimen / Unknown 09/17/2024 10:11 AM EST 09/17/2024 11:25 AM EST us Daija Concepcion [facility] BLOOD ORDERABLES Final Resu lt [facility] [address] [place] [phone] * BI Mammogram Screening Tomosynthesis Bilateral (02/29/2024 1:44 PM EDT) Anatomical Region Laterality Modality Breast Bilateral Mammography 02/29/2024 1:44 PM EDT Narrative 03/25/2024 10:16 PM EDT ? [facility] [place] ? [address] ?[place] [address] ? Mammography Report ? Signed ? Patient: Dixie Zacarias ?MR# ?? : [id number] ? : 1955 ?Acct:[id number] ? Age/Sex: 69 / F ?ADM Date: 07/12/24 ? Loc: HO.MAMMO ? Attending Dr: Daija Concepcion ? Ordering Physician: Daija Concepcion ?Results: 2Benign Fi ?? ndings ? Date of Service: 02/29/24 ?Follow Up: 1 Year From Orig ?? inal Mammogram ? Procedure(s): MM tomosynthesis screening BI ?? Accession Number(s): [id number] ? cc: Daija Concepcion ? EXAMINATION: ?? MM SCREENING DIGITAL BREAST TOMOSYNTHESIS, BILATERAL ? CLINICAL INFORMATION: ? Screening. Asymptomatic. ? COMPARISON: ?? Mammography: This study is compared with prior exams dating back to ?? 2018. ? TECHNIQUE: ?? Digital breast tomosynthesis is performed in both the craniocaudal and ?? mediolateral oblique views along with computer-aided detection (CAD). ?? Synthesized 2D images are generated from the tomosynthesis. ? FINDINGS: ?? There are scattered areas of fibroglandular density (ACR BI-RADS breast ?? composition Category b). ? There are no significant masses, abnormal calcifications, or other ?? abnormalities. ? A small amount of coarse, benign calcification is present in each ?? breast. ? MM/MM tomosynthesis screening BI ?? IMPRESSION: ?? No mammographic evidence of malignancy. ? ASSESSMENT: ? BI-RADS BI-RADS 2 - Benign Findings ? RECOMMENDATION: ?? Routine annual mammography screening. ? 1 year F/U ? This examination should not preclude the clinical evaluation of a ?? suspicious palpable abnormality. ? This patient's information was entered into a reminder system with a ?? target due date for their next mammogram. ? Dictated By: ?Nakia Junior MD ? Signed By: ?<Electronically signed by Nakia Junior MD in OV> ? 03/25/242212 ? DD/ 1344 ? TD/TT: ? Psychic Reader: ? Procedure Note Donotuseinterpreter, Image - 03/25/2024 [facility] [address] [place] [address] Mammography Report Signed Patient: Dixie Zacarias MMR# : [id number] : 7Acct:[id number] Age/Sex: 69 / FADM Date: 02/29/24 Loc: HO.MAMMO Attending Dr: Daija Concepcion Ordering Physician: Daija ConcepcionResults: 2Benign Oralia ndmikie Date of Service: 02/29/24Follow Up: 1 Year From Orig inal Mammogram Procedure(s): MM tomosynthesis screening BI Accession Number(s): [id number] cc: Daija Concepcion EXAMINATION: MM SCREENING DIGITAL BREAST TOMOSYNTHESIS, BILATERAL CLINICAL INFORMATION: Screening. Asymptomatic. COMPARISON: Mammography: This study is compared with prior exams dating back to 2018. TECHNIQUE: Digital breast tomosynthesis is performed in both the craniocaudal and mediolateral oblique views along with computer-aided detection (CAD). Synthesized 2D images are generated from the tomosynthesis. FINDINGS: There are scattered areas of fibroglandular density (ACR BI-RADS breast composition Category b). There are no significant masses, abnormal calcifications, or other abnormalities. A small amount of coarse, benign calcification is present in each breast. MM/MM tomosynthesis screening BI IMPRESSION: No mammographic evidence of malignancy. ASSESSMENT: BI-RADS BI-RADS 2 - Benign Findings RECOMMENDATION: Routine annual mammography screening. 1 year F/U This examination should not preclude the clinical evaluation of a suspicious palpable abnormality. This patient's information was entered into a reminder system with a target due date for their next mammogram. Dictated By: Nakia Junior MD Signed By: <Electronically signed by Nakia Junior MD in OV> 03/25/24 2213 DD/ 1344 TD/TT: Psychic Reader: us Daija Concepcion NP IMG BI PROCEDURES Edited Result - Final * Albumin, Random Urine W/Creatinine (01/02/2024 11:14 AM EDT) Creatinine, Urine 261.78 mg/dL [facility] Microalbumin Urine 18.0 mg/L [facility] Microalbum Creatinine Ratio Ur 6.8 <30 ug/mg cr [facility] Comment:Albumin/Creatinine R atio Reference Ranges: Normal: < 30 ug/mg creatinine Microalbuminuria: 30 - 300 ug/mg creatinineClinical Albuminuria: > 300 ug/mg creatinine Urine (Urine, Random) 01/02/2024 11:14 AM EDT 01/02/2024 1:24 PM EDT Daija Concepcion NP LAB URINE ORDERABLES Final Resu lt [facility] [address] [place] [address] [phone] * Hm Pap Smear (03/06/2023) Pap Negative for intraephithelial lesion or malignancy Negative for intraephithelial lesion or malignancy, Other Liliya Martinez [facility] Final R esult * HPV mRNA E6/E7 w/Reflex to HPV Genotypes 16, 18/45 (03/01/2023 4:00 PM EDT) HPV nRNA E6/E7 Not Detected Not Detected [facility] Comment:Methodology: Transcr iption-Mediated AmplificationThis assay detects E6/E7 viral messenger RNA (mRNA) from 14high-risk HPV types (16,18,31,33,35,39,45,51,52,56,58,59,66,68).Cervical sources are required for HPV testing.If a vaginal source from a patient who has had atotal hysterectomy with removal of cervix wassubmitted, please contact the testing laboratoryfor alternative testing options.For additional information, please refer [email or web address](This link if provided for information/educational purposes only.)THIS TEST WAS PERFORMED AT:[facility] [place] [phone] APPIAH MD HPV mRNA E6/E7 [facility] HPV 16 RNA [facility] HPV 18/45 RNA [facility] 03/01/2023 4:00 PM EDT 03/05/2023 11:10 AM EDT [facility] CYTOLOGY ORDERABLES Fi nal Result Performing Organization Address City/[facility]/ZIP Co de Phone Number [facility] [address] [place] [address] [phone] * Hepatitis C Antibody with Reflex to HCV, RNA, Quantitative, Real-Time PCR (07/24/2022 10:19 AM EST) Hepatitis C Antibody NON-REACT LAUREL NON-REACT LAUREL [employer] [place] [employer] Index 0.07 <1.00 [employer] [place] [employer] Comment: HCV antibody was non-reactive. There is no laboratory evidence of HCV infection. In most cases, no further action is required. However, if recent HCV exposure is suspected, a test for HCV RNA (test code 99589) is suggested. For additional information please refer to [email or web address].Tysdo/faq/[email or web address] (This link is being provided for informational/ educational purposes only.) 07/24/2022 10:1 9 AM EST 07/24/2022 10:20 AM EST Narrative QUEST - 07/25/2022 9:03 PM EST FASTING:YES FASTING: YES [facility] BLOOD ORDERABLES Final Result Performing Organization Address City/[facility]/ZIP Co de Phone Number [address], [place] [address] [facility] [place] [facility] [address], [facility] [place] [address] from Last 3 Months or Most Recently Relevant to Health Maintenance Insurance MEDICARE [facility] Care Teams Ground Defence Officer Relationship Specialty Start Date End Date Daija Concepcion NP [address] [place] [address] PCP - General Family Medicine 05/25/23
--- OUTSIDE RECORDS SUMMARY | 2025-01-07 13:01 | XMS_ITS | Encounter Summary ---
Author Organization [employer] Address [address] [place], [place] [address] [address] Care Team Providers Care Grand Jury Deputy Sheriff Name Role Phone Liliya Martinez MEDICAL PHYSICIST Primary Care Provider [phone] Daija Concepcion FEDERAL AGENT Primary Care Provider [phone] Reason for Visit * Reason Onset Date Comments Appointment Request 11/30/2022 Encounter Details Date Type Department Care Team (Late st Contact Info) Description 11/30/2022 Telephone [facility] [address] [place] [address] Liliya Martinez, [address] Dept of [place] [address] Appointment Request Social History Tobacco Use Types Packs/Day Years Used Date Smoking Tobacco: Never Assessed Comments Unknown Sex and Gender Information Value Date Recorded Sex Assigned at Female 06/19/2022 10:14 AM EDT Legal Sex Female 10:14 AM EDT Gender Identity Female 06/19/2022 10:14 AM EDT Sexual Orientation Don't know 06/19/2022 10 :14 AM EDT documented as of this encounter Miscellaneous Notes * Telephone Encounter - Tete So - 12/14/2022 4:35 PM EDT Tc from pt requesting to R/S appt on 11/30/22 ( TP ). Please contact pt at [phone] * Telephone Encounter - Monty Holcomb - 11/30/2022 9:14 AM EDT Tc from pt requesting to R/S appt on 11/30/22 ( TP ). Please contact pt at [phone] documented in this encounter Plan of Treatment Upcoming Encounters Date Type Department Care Team (Late st Contact Info) Description 01/09/2025 11:00 AM EDT Nurse Only [facility] [address] [place] [address] documented as of this encounter Visit Diagnoses Not on filedocumented in this encounter Care Teams Grand Jury Deputy Sheriff Relationship Specialty Start Date End Date Liliya Martinez FNP PCP - General Family Medicine 02/17/22 05/24/23 Daija Concepcion NP [address] [place] [address] PCP - General Family Medicine 05/25/23 documented as of this encounter
--- OUTSIDE RECORDS SUMMARY | 2025-01-07 13:01 | XMS_ITS | Encounter Summary ---
Author Organization [employer] Address 75 [facility] 7t [place] [address] Care Team Providers Care Underwriting Operations Manager Name Role Phone Daija Concepcion NP Primary Care Provider [phone] Reason for Visit * Reason Onset Date Comments Pre op 10/23/2023 Encounter Details Date Type Department Care Team ([facility] st Contact Info) Description 10/23/2023 Telephone [facility] [address] [place] [address] Daija Concepcion NP [address] [place] [address] Pre op Social History Tobacco Use Types Packs/Day Years Used Date Smoking Tobacco: Never Passive Smoke Exposure: Past Smokeless Tobacco: Never Comments:Mother smoke a lot when she was little Alcohol Use Standard Drinks/Week Comments Never 0 (1 standard drink = 0.6 oz pur e alcohol) Depression Answer Date Recorded Patient Health Questionnaire-9 Score 0 07/25/2023 Patient Health Questionnaire-9 Score 0 07/25/2023 Last PHQ-9: Questionnaire Data Not on file 1 09/25/2022 Housing Stability Answer Date Recorded What is your housing situation today? I have alejandro alvarado 06/25/[address] you li ve. Do you have problems with any of the following? None of the above 06/25/2023 Food Insecurity Answer Date Recorded Within the past 12 months, y ou worried that your food would run out before you got money to buy more: Never True 06/25/2023 Within the past 12 months,th e food you bought just didn't last and you didn't have enough money to get more: Never True 01/2023 Transportation Answer Date Recorded In the past 12 months, has l ack of transportation kept you from medical appts, meetings, work or from getting things needed for daily living? No 06/25/2023 Utilities Answer Date Recorded In the past 12 months, has t he electric, gas, oil or water company threatened to shut off services in your home? No 06/25/2023 Depression Answer Date Recorded Patient Health Questionnaire-2 Score 0 07/25/2023 Comments Unknown Sex and Gender Information Value Date Recorded Sex Assigned at Female 06/19/2022 10:14 AM EDT Legal Sex Female 10:14 AM EDT Gender Identity Female 06/19/2022 10:14 AM EDT Sexual Orientation Don't know 06/19/2022 10 :14 AM EDT documented as of this encounter Miscellaneous Notes * Telephone Encounter - Royal Brown RN - 10/24/2023 11:15 AM EST T/C to pt. Through [employer] id - [id number] for below message, No answer. LVM to call back [phone]. * Telephone Encounter - Felisha Kruger - 10/24/2023 10:38 AM EST Tc from pt requesting a later time in the day for Pre-op appointment if possible. Please contact pt at [phone] (Uzbek) * Telephone Encounter - Royal Brown RN - 10/23/2023 4:02 PM EST T/C to [phone] for below message, pt. Schedule for pre-op apt. On 11/14. Cuca is going to inform pt. * Telephone Encounter - Lorena Pham - 10/23/2023 11:27 AM EST Date of Surgery: 11/23/23 Surgical procedure being done: cataract surgery right eye Type of anesthesia: Max Lab needed: no EKG: no Surgeon's name: Kimberly Manriquez Facility name: [facility] Surgeon's office number: [phone] [address] Surgeon's office fax number: [phone] Contact name (person you spoke with): Cuca Last office note from surgeon requested: no documented in this encounter Plan of Treatment Upcoming Encounters Date Type Department Care Team (Late st Contact Info) Description 01/09/2025 11:00 AM EDT Nurse Only [facility] [address] [place] [address] documented as of this encounter Visit Diagnoses Not on filedocumented in this encounter Additional Health Concerns Assessment Noted Time PHQ-9 Depression Total Score: 0 07/25/20 10:00 AM EST documented as of this encounter Care Teams Underwriting Operations Manager Relationship Specialty Start Date End Date Daiaj Concepcion NP [address] [place] [address] PCP - General Family Medicine 05/25/23 documented as of this encounter
--- OUTSIDE RECORDS SUMMARY | 2025-01-07 13:01 | XMS_ITS | Encounter Summary ---
Author Organization [employer] Address 75 [facility] 7t [place] [address] Care Team Providers Care Safety Analyst Name Role Phone Daija Concepcion RESEARCH INTERN Primary Care Provider [phone] Reason for Visit * Reason Comments Med Refill Encounter Details Date Type Department Care Team ([facility] st Contact Info) Description 07/21/2024 Refill [facility] MED[facility]INE [address] [place] [address] Daija Concepcion NP [address] [place] [address] Type 2 diabetes mellitus without complication, without long-term current use of insulin ([facility]) Social History Tobacco Use Types Packs/Day Years [...] encounter Miscellaneous Notes * Telephone Encounter - Cristin Carrasquillo LPN - 07/21/2024 3:08 PM EST Last seen 03/28/24. documented in this encounter Plan of Treatment Upcoming Encounters Date Type Department Care Team (Late st Contact Info) Description 01/09/2025 11:00 AM EDT Nurse Only [facility] MEDICINE [address] [place] [address] documented as of this encounter Visit Diagnoses Diagnosis Type 2 diabetes mellitus without complication, without long-term current use of insulin ([facility]) documented in this encounter Additional Health Concerns Assessment Noted Time PHQ-9 Depression Total Score: 0 07/25/20 10:00 AM EST documented as of this encounter Care Teams Safety Analyst Relationship Specialty Start Date End Date Daija Concepcion NP [address] [place] [address] PCP - General Family Medicine 05/25/23 documented as of this encounter
--- OUTSIDE RECORDS SUMMARY | 2025-01-07 13:01 | XMS_ITS | Encounter Summary ---
Author Organization [employer] Address 75 [facility] 7t [place] [address] Care Team Providers Care Gear Tooth Grinding Machine Operator Name Role Phone Daija Concepcion NP Primary Care Provider [phone] Encounter Details Date Type Department Care Team (Late st Contact Info) Description 08/30/2023 Abstract [facility] MEDICINE [address] [place] [address] Daija Concepcion NP [address] [place] [address] Social History Tobacco Use Types Packs/Day Years [...] Description 01/09/2025 11:00 AM EDT Nurse Only [facility] [address] [place] [address] documented as of this encounter Visit Diagnoses Not on filedocumented in this encounter Additional Health Concerns Assessment Noted Time PHQ-9 Depression Total Score: 0 07/25/20 10:00 AM EST documented as of this encounter Care Teams Gear Tooth Grinding Machine Operator Relationship Specialty Start Date End Date Daija Concepcion NP [address] [place] [address] PCP - General Family Medicine 05/25/23 documented as of this encounter
--- OUTSIDE RECORDS SUMMARY | 2025-01-07 13:01 | XMS_ITS | Encounter Summary ---
Author Organization [employer] Address 75 [facility] 7t [place] [address] Care Team Providers Care Disease Case Manager Rn Name Role Phone Daija Concepcion STORE DETECTIVE Primary Care Provider [phone] Encounter Details Date Type Department Care Team (Latest Contact Info) Description 01/06/2025 Travel Social History Tobacco Use Types Packs/Day Years [...] Description 01/09/2025 11:00 AM EDT Nurse Only [facility] MEDICINE [address] [place] [address] documented as of this encounter Visit Diagnoses Not on filedocumented in this encounter Additional Health Concerns Assessment Noted Time PHQ-9 Depression Total Score: 0 07/25/20 10:00 AM EST documented as of this encounter Care Teams Disease Case Manager Rn Relationship Specialty Start Date End Date Daija Concepcion NP [address] [place] [address] PCP - General Family Medicine 05/25/23 documented as of this encounter
--- OUTSIDE RECORDS SUMMARY | 2025-01-07 13:01 | XMS_ITS | Encounter Summary ---
Author Organization [employer] Address 75 [facility] 7t [place] [address] Care Team Providers Care Ship'S Surveyor Name Role Phone Daija Concepcion SUPERVISOR VAT HOUSE Primary Care Provider [phone] Reason for Visit * Reason Comments Med Refill Encounter Details Date Type Department Care Team ([facility] st Contact Info) Description 02/24/2024 Refill [facility] MED[facility]INE [address] [place] [address] Daija Concepcion NP [address] [place] [address] Social History Tobacco Use Types Packs/Day Years [...] Description 01/09/2025 11:00 AM EDT Nurse Only [facility]INE [address] [place] [address] documented as of this encounter Visit Diagnoses Not on filedocumented in this encounter Additional Health Concerns Assessment Noted Time PHQ-9 Depression Total Score: 0 07/25/20 10:00 AM EST documented as of this encounter Care Teams Ship'S Surveyor Relationship Specialty Start Date End Date Daija Concepcion NP [address] [place] [address] PCP - General Family Medicine 05/25/23 documented as of this encounter
--- OUTSIDE RECORDS SUMMARY | 2025-01-07 13:01 | XMS_ITS | Encounter Summary ---
Author Organization [employer] Address 75 [facility] 7t [place] [address] Care Team Providers Care Inventory Technician Name Role Phone Daija Concepcion JANITOR AND CLEANER Primary Care Provider [phone] Reason for Visit * Reason Comments Med Refill Encounter Details Date Type Department Care Team ([facility] st Contact Info) Description 11/18/[address] [facility] MEDICINE [address] [place] [address] Daija Concepcion NP [address] [place] [address] Social History Tobacco Use Types Packs/Day Years [...] Description 01/09/2025 11:00 AM EDT Nurse Only [facility] MEDICINE [address] [place] [address] documented as of this encounter Visit Diagnoses Not on filedocumented in this encounter Additional Health Concerns Assessment Noted Time PHQ-9 Depression Total Score: 0 07/25/20 10:00 AM EST documented as of this encounter Care Teams Inventory Technician Relationship Specialty Start Date End Date Daija Concepcion NP [address] [place] [address] PCP - General Family Medicine 05/25/23 documented as of this encounter
--- OUTSIDE RECORDS SUMMARY | 2025-01-07 13:01 | XMS_ITS | Encounter Summary ---
Author Organization [employer] Address 75 [facility] 7t [place] [address] Care Team Providers Care Sheet Taker Name Role Phone Daija Concepcion SALVAGER HELPER Primary Care Provider [phone] Encounter Details Date Type Department Care Team (Latest Contact Info) Description 01/07/2025 Travel Social History Tobacco Use Types Packs/Day [...] AM EDT documented as of this encounter Functional Status * Over the [...] 11:43 AM EDT Cailin Ramos MA * Trouble falling or staying asleep, or sleeping too much Answer Date of Assessment Author Several days 01/07/2025 11:43 AM ROMEROT Cailin Ramos MA * Feeling tired or having little energy Answer Date of Assessment Author Not at all 01/07/2025 11:43 AM EDT Cailin Ramos MA * Poor appetite or overeating Answer Date of Assessment Author Not at all 01/07/2025 11:43 AM EDT Cailin Ramos MA * Feeling bad about yourself - or that you are a failure or have let yourself or your family down Answer Date of Assessment Author Not at all 01/07/2025 11:43 AM ROMEROT Cailin Ramos MA * Trouble concentrating on things, such as reading the newspaper or watching television Answer Date of Assessment Author Not at all 01/07/2025 11:43 AM ROMEROT Cailin Ramos MA * Moving or speaking so slowly that other people could have noticed? Or the opposite - being so fidgety or restless that you have been moving around a lot more than usual. Answer Date of Assessment Author Not at all 01/07/2025 11:43 AM EDT Cailni Ramos MA * Thoughts that you would be better off or hurting yourself in some way Answer Date of Assessment Author Not at all 01/07/2025 11:43 AM EDT Cailin Ramos MA * Patient Health Questionnaire-9 Score Answer Date of Assessment Author 1 01/07/2025 11:43 AM EDT Cailin Ramos MA * How difficult have these problems made it for you to do your work, take care of things at home, or get along with other people? Answer Date of Assessment Author Not difficult at all 01/07/2025 11:43 AM EDT Cailin Dunbar MA * Over the last 2 weeks, [...] diff erent things 1 01/07/2025 11:43 AM ROMEROT Cailin Ramos MA Trouble relaxing 0 01/07/2025 11:43 AM ROMEROT Cailin Ramos MA Being so restless that it is hard to sit still 0 01/07/2025 11:43 AM ROMEROT Cailin Ramos MA Becoming easily annoyed or irritable 0 01/07/2025 11:43 AM ROMEROT Cailin Ramos MA Feeling afraid as if somethi ng awful might happen 0 01/07/2025 11:43 AM ROMEROT Cailin Ramos MA YOANDY-7 Total Score 1 01/07/2025 11:43 AM EDT Cailin Ramos MA documented as of this encounter Plan of Treatment Upcoming Encounters Date Type Department Care Team (Late st Contact Info) Description 01/09/2025 11:00 AM EDT Nurse Only [facility] MEDICINE [address] [place] [address] documented as of this encounter Visit Diagnoses Not on filedocumented in this encounter Additional Health Concerns Assessment Noted Time PHQ-9 Depression Total Score: 1 01/08/20 25 11:43 AM EDT documented as of this encounter Care Teams Sheet Taker Relationship Specialty Start Date End Date Daija Concepcion NP [address] [place] [address] PCP - General Family Medicine 05/25/23 documented as of this encounter
--- OUTSIDE RECORDS SUMMARY | 2025-01-07 13:01 | XMS_ITS | Encounter Summary ---
Author Organization [email or web address] Address 75 [facility] 7t [place] [address] Care Team Providers Care Dough Machine Operator Name Role Phone Daija Concepcion NP Primary Care Provider [phone] Reason for Visit * Reason Comments Med Refill Encounter Details Date Type Department Care Team ([facility] st Contact Info) Description 04/24/2024 Refill [facility] PEDS [address] [place] [address] Daija Concepcion NP [address] [place] [address] Type 2 diabetes mellitus without complication, without long-term current use of insulin ([facility]) Social History Tobacco Use Types Packs/Day Years [...] Description 01/09/2025 11:00 AM EDT Nurse Only [facility] MEDICINE [address] [place] [address] documented as of this encounter Visit Diagnoses Diagnosis Type 2 diabetes mellitus without complication, without long-term current use of insulin ([facility]) documented in this encounter Additional Health Concerns Assessment Noted Time PHQ-9 Depression Total Score: 0 07/25/20 10:00 AM EST documented as of this encounter Care Teams Dough Machine Operator Relationship Specialty Start Date End Date Daija Concepcion NP [address] [place] [address] PCP - General Family Medicine 05/25/23 documented as of this encounter
--- OUTSIDE RECORDS SUMMARY | 2025-01-07 13:01 | XMS_ITS | Encounter Summary ---
Author Organization [employer] Address 75 [facility] 7t [place] [address] Care Team Providers Care Boatbuilder Apprentice Wood Name Role Phone Daija Concepcion NP Primary Care Provider [phone] Reason for Visit * Reason Onset Date Comments Med Refill 12/19/2024 Encounter Details Date Type Department Care Team ([facility] st Contact Info) Description 12/19/2024 Telephone [facility] MEDICINE [address] [place] [address] Daija Concepcion NP [address] [place] [address] Med Refill Social History Tobacco Use Types Packs/Day Years [...] encounter Miscellaneous Notes * Telephone Encounter - Critsin Carrasquillo LPN - 12/19/2024 10:13 AM EDT Medication pended to PCP. * Telephone Encounter - Alec Ramos - 12/19/2024 9:57 AM EDT TC from pt requesting medication refill. Medications needing refill : aspirin 81 MG chewable tablet hydroCHLOROthiazide (HYDRODiuril) 12.5 MG tablet To be sent to: [id number] [address] [place] [address] AT [facility] documented in this encounter Plan of Treatment Upcoming Encounters Date Type Department Care Team (Late st Contact Info) Description 01/09/2025 11:00 AM EDT Nurse Only [facility] MEDICINE [address] [place] [address] documented as of this encounter Visit Diagnoses Not on filedocumented in this encounter Additional Health Concerns Assessment Noted Time PHQ-9 Depression Total Score: 0 07/25/20 10:00 AM EST documented as of this encounter Care Teams Boatbuilder Apprentice Wood Relationship Specialty Start Date End Date Daija Concepcion NP [address] [place] [address] PCP - General Family Medicine 05/25/23 documented as of this encounter
--- OUTSIDE RECORDS SUMMARY | 2025-01-07 13:01 | XMS_ITS | Encounter Summary ---
Author Organization [employer] Address 75 [facility] 7t [place] [address] Care Team Providers Care Patient Service Technician Pst Name Role Phone Daija Concepcion NP Primary Care Provider [phone] Reason for Visit * Reason Onset Date Comments Med Refill 07/21/2024 Encounter Details Date Type Department Care Team ([facility] st Contact Info) Description 07/21/2024 Telephone [facility] MEDICINE [address] [place] [address] Daija Concepcion NP [address] [place] [address] Med Refill Social History Tobacco Use Types [...] Encounter - Cristin Carrasquillo LPN - 07/21/2024 3:09 PM EST Medication pended to PCP. * Telephone Encounter - Lilian Iniguez - 07/21/2024 2:59 PM EST TC from pt requesting medication refill. Medications needing refill : amLODIPine (Norvasc) 5 MG tablet To be sent to: [id number] [place], [place] - [address] [facility] documented in this encounter Plan of Treatment Upcoming Encounters Date Type Department Care Team (Late st Contact Info) Description 01/09/2025 11:00 AM EDT Nurse Only [facility] MEDICINE [address] [place] [address] documented as of this encounter Visit Diagnoses Not on filedocumented in this encounter Additional Health Concerns Assessment Noted Time PHQ-9 Depression Total Score: 0 07/25/20 10:00 AM EST documented as of this encounter Care Teams Patient Service Technician Pst Relationship Specialty Start Date End Date Daija Concepcion NP [address] [place] [address] PCP - General Family Medicine 05/25/23 documented as of this encounter
--- OUTSIDE RECORDS SUMMARY | 2025-01-07 13:01 | XMS_ITS | Encounter Summary ---
Author Organization [employer] Address [address] [place] [address] [place] [address] Care Team Providers Care Director Compliance Name Role Phone Liliya Martinez Primary Care Provider [phone] Daija Concepcion NP Primary Care Provider [phone] Reason for Visit * Reason Comments Med Refill Encounter Details Date Type Department Care Team ([facility] Contact Info) Description 04/25/2023 Refill [facility] MEDICINE [address] [place] [address] Liliya Martinez FNP [address] [place] [address] Dept [place] [address] Social History Tobacco Use Types Packs/Day Years [...] Upcoming Encounters Date Type Department Care Team ([facility] Contact Info) Description 01/09/2025 11:00 AM EDT Nurse Only [facility] MEDICINE [address] [place] [address] documented as of this encounter Visit Diagnoses Not on filedocumented in this encounter Care Teams Director Compliance Relationship Specialty Start Date End Date Liliya Martinez FNP PCP - General Family Medicine 02/17/22 05/24/23 Daija Concepcion NP [address] [place] [address] PCP - General Family Medicine 05/25/23 documented as of this encounter
[2025-01-07 14:32] LABS: Anion Gap 11 (12-20); Blood Urea Nitrogen 16 mg/dL (9-16); Calcium 9.6 mg/dL (8.4-10.2); Carbon Dioxide 29 mmol/L (22-29); Chloride 103 mmol/L (96-108); Estimated Glomerular Filt Rate > 60; Glucose Random 91 mg/dL (60-115); Potassium 3.8 mmol/L (3.3-5.1); Sodium 139 mmol/L (135-145)
[2025-01-07 15:03] LABS: Microalbumin Urine < 5.0 mg/L
[2025-01-07 15:11] LABS: Creatinine Urine 35.48 mg/dL
== END 2025-01-07 11:53 | disposition home or self-care (01) ==
LOC: HO.HHCL 11:52
PROVIDERS: Visit Provider Nurse Practitioner
DX: I10 Essential (primary) hypertension (principal); E11.9 Type 2 diabetes mellitus without complications
CPT/HCPCS: 36415; 80048; 82043; 82570

== ENCOUNTER 2025-03-27 12:59 | Outpatient (REF) | payer MEDICARE, MEDICAID, SELFPAY ==
--- OUTSIDE RECORDS SUMMARY | 2025-03-27 13:01 | XMS_ITS | Encounter Summary ---
Author Organization [employer] Address [address] [facility] 7t [place] [address] Care Team Providers Care Molecular Biology Professor Name Role Phone Daija Concepcion RESIDENTIAL CARPENTER Primary Care Provider [phone] Reason for Visit * Reason Comments Med Refill Encounter Details Date Type Department Care Team ([facility] st Contact Info) Description 11/18/2023 Refill [facility] MEDICINE [address] [place] [address] Daija Concepcion NP [address] [place] [address] Social History Tobacco Use Types Packs/Day Years [...] as of this encounter Plan of Treatment Not on file documented as of this encounter Visit Diagnoses Not on filedocumented in this encounter Additional Health Concerns Assessment Noted Time PHQ-9 Depression Total Score: 0 07/25/20 10:00 AM EST documented as of this encounter Care Teams Molecular Biology Professor Relationship Specialty Start Date End Date Daija Concepcion NP [address] [place] [address] PCP - General Family Medicine 05/25/23 documented as of this encounter
== END 2025-03-27 13:00 | disposition home or self-care (01) ==
LOC: HO.MAMMO 12:59
PROVIDERS: PCP Nurse Practitioner; Visit Provider Nurse Practitioner
DX: Z12.31 Encounter for screening mammogram for malignant neoplasm of breast (principal)
CPT/HCPCS: 77063; 77067

== ENCOUNTER → 2025-03-27 13:15 | Outpatient (BNV) | payer MEDICARE, MEDICAID, SELFPAY | PROVIDERS: PCP Nurse Practitioner; Visit Provider Internal Medicine | DX: Z12.31 Encounter for screening mammogram for malignant neoplasm of breast (principal) | CPT/HCPCS: 77063; 77067 ==

== ENCOUNTER 2025-04-17 11:50 | Outpatient (AMB) | payer MEDICARE, SELFPAY ==
--- NOTE | 2025-04-17 12:01 | MHC.OFFVIS ---
Vital Signs 04/17/25 12:03 Height 5 ft 3 in Weight 151 lb BMI 26.7 BP 116/62 Blood Pressure Location Lt brachial Position Sitting Pulse 105 H Pulse Oximetry (%) 97 Oxygen Delivery Method Room Air Intake Visit Reasons: 30 M. Rescreen colo. [facility] 12/2023. Intake Note: Patient follow up for pre Colonoscopy Patient cc: constipation, denies any other GI issues. Manager Bakery Required: Yes Accompanied by: Family/Other Allergies No Known Allergies Allergy (Verified 04/17/25 12:00) HPI HPI 30 M. Rescreen colo. [facility] 12/2023.: Details: LAST VISIT: Screen for colon cancer Plan Patient denies any GI, cardiac or respiratory symptoms.? Denies any issues with anesthesia in the past.? Denies any history of sleep apnea.? No history infectious diseases in the past or present.? Not on any anticoagulation therapy.? No family or personal history of colon cancer or polyps.? Patient denies melena, hematochezia, unintentional weight loss or ribbon like stools.? Discussed at length the pre-procedure,? prep, diet & medications as well as what to expect prior, during and after the procedure.?? Stressed the importance of good bowel prep.? Recommended the use of Vaseline or Calmoseptine OTC & baby wipes with bowel movements to promote comfort.? ?Patient verbalizes understanding and agrees to plan of care.? She was given the opportunity to ask questions and all questions answered.? We will see her after the procedure.? New bisacodyl (Dulcolax (bisacodyl)) take 4 tabs at noon the day before your colonoscopy 20 mg (4 x 5 mg) PO ONCE 1 day 4 tabs 0RF Z12.11 polyethylene glycol 3350 (Miralax) As directed by gastroenterology department at [facility] 238 grams PO ONCE 238 grams 0RF Z12.11 TODAY'S VISIT The patient is here today for follow-up and to discuss going for colonoscopy. Patient reports that she has prep instructions at home. Patient reports that her PCP sent her Cologuard and it came back positive. Patient reports that she is constipated. Currently she is not taking anything to help her go to the bathroom. Patient denies melena, hematochezia, unintentional weight loss or ribbon like stools. Patient denies any other GI concerning symptoms. [facility] Medical History (Updated 04/17/25 @ 12:56 by Estrellita Dukes [facility]) Hyperlipidemia Diabetes HTN (hypertension) Review of Systems Const Denies weight gain and Denies weight loss ENT Reports no additional complaints, Denies dysphagia and Denies odynophagia Card Reports no additional complaints Resp Reports no additional complaints GI Denies abdominal pain, Denies belching, Denies melena, Denies bloating, Denies change in bowel habits, Reports constipation, Denies dysphagia, Denies excessive flatus, Denies dyspepsia, Denies heartburn, Denies diarrhea, Reports loose stools (occasional), Denies nausea, Denies odynophagia and Denies vomiting Musc Reports no additional complaints Neuro Reports no additional complaints Psych Reports no additional complaints Endo Reports no additional complaints Physical Exam Const General: healthy appearing, no acute distress and well developed Nutritional Appearance: well nourished Orientation/consciousness: patient oriented x3 Resp Effort & Inspection: normal respiratory effort, able to speak in complete sentences, no tracheal deviation and symmetric chest movement Auscultation: clear to auscultation bilaterally Cardio Rate: regular rate GI Inspection: Yes normal to inspection and No distended Palpation (GI): Soft to palpation, not firm, nontender and No hepatosplenomegaly present Auscultation: normal bowel sounds General: Yes no CVA tenderness Back/Spine/Pelvis Back: no CVA tenderness Skin General skin exam: elasticity normal, turgor normal and dry skin Neuro General: patient oriented x3 Psych Appearance: grossly normal Mental Status: mental status grossly normal Assessment & Plan Assessment & Plan (1) Encounter for screening for malignant neoplasm of colon: Code(s): Z12.11 - Encounter for screening for malignant neoplasm of colon Plan What to expect he he the before during and after procedure discussed with patient. Stressed the importance of good bowel prep and clear liquid diet day before procedure. Message sent to Surgical schedulers to book procedure for patient. Patient will be assisted today to bulk procedure. Patient is agreeable to current plan of care and verbalizes understanding of instructions. She was given the opportunity to ask questions and all questions answered. Thank you for allowing me to participate in her care Medications: New polyethylene glycol 3350 (Miralax) As directed by gastroenterology department at [facility] 238 grams PO ONCE 238 grams 0RF Z12.11 - Encounter for screening for malignant neoplasm of colon bisacodyl (Dulcolax (bisacodyl)) 10 mg (2 x 5 mg) PO BEDTIME 180 tabs 4RF Coding Level of Care Code Est Pt Level 3 (05210) Diagnoses Encounter for screening for malignant neoplasm of colon Z12.11 Time Spent (min) 30 Comment 20 minutes spent with patient and additional 10 minutes spent reviewing her records
[2025-04-17 12:03] VITALS: BP 116/62; PULSE 105; O2SAT 97; BMI 26.7
--- OUTSIDE RECORDS SUMMARY | 2025-04-17 12:47 | XMS_ITS | Encounter Summary ---
Author Organization [employer] Address [address] [place] [address] 7t [place] [address] Care Team Providers Care Mica Inspector Name Role Phone Liliya Martinez Primary Care Provider Daija Yeboah NP Primary Care Provider [phone] Encounter Details Date Type Department Care Team ([facility] Contact Info) Description 03/27/2023 Abstract [facility] MEDICINE [address] [place] [address] Liliya Martinez FNP Social History Tobacco Use Types Packs/Day Years [...] Upcoming Encounters Date Type Department Care Team ([facility] Contact Info) Description 07/15/2025 9:45 AM EST Office Visit [facility] MEDICINE [address] [place] [address] Daija Concepcion NP [address] [place] [address] documented as of this encounter Visit Diagnoses Not on filedocumented in this encounter Care Teams Mica Inspector Relationship Specialty Start Date End Date Liliya Martinez FNP PCP - General Family Medicine 02/17/22 05/24/23 Daija Concepcion NP [address] [place] [address] PCP - General Family Medicine 05/25/23 documented as of this encounter
--- OUTSIDE RECORDS SUMMARY | 2025-04-17 12:47 | XMS_ITS | Encounter Summary ---
Author Organization [employer] Address 75 [facility] 7t [place] [address] Care Team Providers Care Gas Well Pumper Name Role Phone Daija Concepcion NP Primary Care Provider [phone] Encounter Details Date Type Department Care Team (Late st Contact Info) Description 08/30/2023 Abstract [facility] MEDICINE [address] [place] [address] Daija Concepcion NP [address] [place] [address] Social History Tobacco Use Types Packs/Day Years [...] Care Team (Late st Contact Info) Description 07/15/2025 9:45 AM EST Office Visit [facility] MEDICINE [address] [place] [address] Daija Concepcion NP [address] [place] [address] documented as of this encounter Visit Diagnoses Not on filedocumented in this encounter Additional Health Concerns Assessment Noted Time PHQ-9 Depression Total Score: 0 07/25/20 10:00 AM EST documented as of this encounter Care Teams Gas Well Pumper Relationship Specialty Start Date End Date Daija Concepcion NP [address] [place] [address] PCP - General Family Medicine 05/25/23 documented as of this encounter
--- OUTSIDE RECORDS SUMMARY | 2025-04-17 12:47 | XMS_ITS | Encounter Summary ---
Author Organization [employer] Address 75 [facility] 7t [place] [address] Care Team Providers Care Research And Development Tester Name Role Phone Daija Concepcion NP Primary Care Provider [phone] Reason for Visit * Reason Onset Date Comments Pre op 10/23/2023 Encounter Details Date Type Department Care Team ([facility] st Contact Info) Description 10/23/2023 Telephone [facility] MEDICINE [address] [place] [address] Daija Concepcion NP [address] [place] [address] Pre op Social History Tobacco Use Types [...] 11:15 AM EST T/C to pt. Through [employer] [facility] [place] - [id number] for below message, No answer. LVM to call back [phone]. * Telephone Encounter - Felisha Kruger - 10/24/2023 10:38 AM EST Tc from pt requesting a later time in the day for Pre-op appointment if possible. Please contact pt at [phone] (Moroccan) * Telephone Encounter - Royal Brown RN - 10/23/2023 4:02 PM EST T/C to [phone] for below message, pt. Schedule for pre-op apt. On 11/14. Cuca is going to inform pt. * Telephone Encounter - Lorena Pham - 10/23/2023 11:27 AM EST Date of Surgery: 11/23/23 Surgical procedure being done: cataract surgery right eye Type of anesthesia: Max Lab needed: no EKG: no Surgeon's name: Kimberly Manriquez Facility name: [facility] Surgeon's office number: [phone] [address] Surgeon's office fax number: [phone] Contact name (person you spoke with): Cuca Last office note from surgeon requested: no documented in this encounter Plan of Treatment Upcoming Encounters Date Type Department Care Team ([facility] st Contact Info) Description 07/15/2025 9:45 AM EST Office Visit [facility] MEDICINE [address] [place] [address] Daija Concepcion NP [address] [place] [address] documented as of this encounter Visit Diagnoses Not on filedocumented in this encounter Additional Health Concerns Assessment Noted Time PHQ-9 Depression Total Score: 0 07/25/20 10:00 AM EST documented as of this encounter Care Teams Research And Development Tester Relationship Specialty Start Date End Date Dajia Concepcion NP [address] [place] [address] PCP - General Family Medicine 05/25/23 documented as of this encounter
--- OUTSIDE RECORDS SUMMARY | 2025-04-17 12:47 | XMS_ITS | Encounter Summary ---
Author Organization [employer] Address [address] [facility] 7t [place] [address] Care Team Providers Care Belt Measurer Name Role Phone Daija Concepcion NP Primary Care Provider [phone] Reason for Visit * Reason Onset Date Comments june recall 04/15/2025 Encounter Details Date Type Department Care Team ([facility] st Contact Info) Description 04/15/2025 Telephone [facility] MEDICINE [address] [place] [address] Daija Concepcion NP [address] [place] [address] june Social History Tobacco Use Types Packs/Day Years [...] encounter Miscellaneous Notes * Telephone Encounter - Cailin Ramos MA - 04/15/2025 1:32 PM EDT Telephone call to patient to schedule the following recall: June Visit type: Follow up Appointment notes: Follow up in about 6 months (around 07/10/2025) for routine health maintenance. Patient agree to appointment on 07/15/2025 at 9:45 AM with Jamey. Reminder letter will be sent. documented in this encounter Plan of Treatment Upcoming Encounters Date Type Department Care Team (Late st Contact Info) Description 07/15/2025 9:45 AM EST Office Visit [facility] MEDICINE [address] [place] [address] Daija Concepcion NP [address] [place] [address] documented as of this encounter Visit Diagnoses Not on filedocumented in this encounter Additional Health Concerns Assessment Noted Time PHQ-9 Depression Total Score: 1 01/08/20 25 11:43 AM EDT documented as of this encounter Care Teams Belt Measurer Relationship Specialty Start Date End Date Daija Concepcion NP [address] [place] [address] PCP - General Family Medicine 05/25/23 documented as of this encounter
--- OUTSIDE RECORDS SUMMARY | 2025-04-17 12:47 | XMS_ITS | Encounter Summary ---
Author Organization [employer] Address [address] [facility] 7t [place] [address] Care Team Providers Care Supervisor Byproducts Name Role Phone Liliya Martinez LANGUAGE TRANSLATOR Primary Care Provider Daija Yeboah SENIOR LEAD PROJECT MANAGER Primary Care Provider [phone] Reason for Visit * Reason Onset Date Comments Appointment Request 11/30/2022 Encounter Details Date Type Department Care Team ([facility] st Contact Info) Description 11/30/[address] [facility] MEDICINE [address] [place] [address] Liliya Martinez FNP Appointment Request Social History Tobacco Use Types [...] ( TP ). Please contact pt at [phone] * Telephone Encounter - Monty Holcomb - 11/30/2022 9:14 AM EDT Tc from pt requesting to R/S appt on 11/30/22 ( TP ). Please contact pt at [phone] documented in this encounter Plan of Treatment Upcoming Encounters Date Type Department Care Team (Late st Contact Info) Description 07/15/2025 9:45 AM EST Office Visit [facility] MEDICINE [address] [place] [address] Daija Concepcion NP [address] [place] [address] documented as of this encounter Visit Diagnoses Not on filedocumented in this encounter Care Teams Supervisor Byproducts Relationship Specialty Start Date End Date Liliya Martinez FNP PCP - General Family Medicine 02/17/22 05/24/23 Daija Concepcion NP [address] [place] [address] PCP - General Family Medicine 05/25/23 documented as of this encounter
--- OUTSIDE RECORDS SUMMARY | 2025-04-17 12:47 | XMS_ITS | Encounter Summary ---
Author Organization [email or web address] Address [address] [facility] 7t [place] [address] Care Team Providers Care Apprentice Painter Hand Name Role Phone Daija Concepcion MANAGED CARE MANAGER Primary Care Provider [phone] Reason for Visit * Reason Comments Med Refill Encounter Details Date Type Department Care Team ([facility] st Contact Info) Description 07/21/2024 Refill [facility] MEDICINE [address] [place] [address] Daija Concepcion NP [address] [place] [address] Type 2 diabetes mellitus without complication, without long-term current use of insulin ([facility]) Social History Tobacco Use Types Packs/Day Years [...] Description 07/15/2025 9:45 AM EST Office Visit [facility] MEDICINE [address] [place] [address] aDija Concepcion NP [address] [place] [address] documented as of this encounter Visit Diagnoses Diagnosis Type 2 diabetes mellitus without complication, without long-term current use of insulin ([facility]) documented in this encounter Additional Health Concerns Assessment Noted Time PHQ-9 Depression Total Score: 0 07/25/20 23 10:00 AM EST documented as of this encounter Care Teams Apprentice Painter Hand Relationship Specialty Start Date End Date Daija Concepcion NP [address] [place] [address] PCP - General Family Medicine 05/25/23 documented as of this encounter
--- OUTSIDE RECORDS SUMMARY | 2025-04-17 12:47 | XMS_ITS | Encounter Summary ---
Author Organization [employer] Address [address] [facility] 7t [place] [address] Care Team Providers Care Record Changer Tester Name Role Phone Daija Concepcion STRATEGIC PLANNING ANALYST Primary Care Provider [phone] Reason for Visit * Reason Comments Med Refill Encounter Details Date Type Department Care Team ([facility] st Contact Info) Description 04/16/2025 Refill [facility] MEDICINE [address] [place] [address] Daija Concepcion NP [address] [place] [address] Type 2 diabetes mellitus without complication, without long-term current use of insulin ([facility] Social History Tobacco Use Types Packs/Day Years [...] Description 07/15/2025 9:45 AM EST Office Visit [facility] MEDICINE [address] [place] [address] Daija Concepcion NP [address] [place] [address] documented as of this encounter Visit Diagnoses Diagnosis Type 2 diabetes mellitus without complication, without long-term current use of insulin ([facility]) documented in this encounter Additional Health Concerns Assessment Noted Time PHQ-9 Depression Total Score: 1 01/08/20 25 11:43 AM EDT documented as of this encounter Care Teams Record Changer Tester Relationship Specialty Start Date End Date Daija Concepcion NP [address] [place] [address] PCP - General Family Medicine 05/25/23 documented as of this encounter
--- OUTSIDE RECORDS SUMMARY | 2025-04-17 12:47 | XMS_ITS | Encounter Summary ---
Author Organization [employer] Address [address] [facility] 7t [place] [address] Care Team Providers Care Flour Worker Name Role Phone Daija Cnocepcion NP Primary Care Provider [phone] Reason for Visit * Reason Comments Med Refill Encounter Details Date Type Department Care Team ([facility] st Contact Info) Description 04/24/2024 Refill [facility] & PEDS [address] [place] [address] Daija Concepcion NP [address] [place] [address] Type 2 diabetes mellitus without complication, without long-term current use of insulin ([facility]) Social History Tobacco Use Types Packs/Day Years [...] Description 07/15/2025 9:45 AM EST Office Visit [facility] MEDICINE [address] [place] [address] Daija Concepcion NP [address] [place] [address] documented as of this encounter Visit Diagnoses Diagnosis Type 2 diabetes mellitus without complication, without long-term current use of insulin ([facility]) documented in this encounter Additional Health Concerns Assessment Noted Time PHQ-9 Depression Total Score: 0 07/25/20 10:00 AM EST documented as of this encounter Care Teams Flour Worker Relationship Specialty Start Date End Date Daija Concepcion NP [address] [place] [address] PCP - General Family Medicine 05/25/23 documented as of this encounter
--- OUTSIDE RECORDS SUMMARY | 2025-04-17 12:47 | XMS_ITS | Encounter Summary ---
Author Organization [employer] Address [address] [place] [address] 7t [place] [address] Care Team Providers Care Continuous Improvement Engineer Name Role Phone Liliya Martinez Primary Care Provider Lucy lizabethilaDaija Triana NP Primary Care Provider [phone] Reason for Visit * Reason Comments Med Refill Encounter Details Date Type Department Care Team ([facility] Contact Info) Description 04/25/2023 Refill [facility] MEDICINE [address] [place] [address] Liliya Martinez FNP Social History Tobacco Use [...] Upcoming Encounters Date Type Department Care Team ([facility] Contact Info) Description 07/15/2025 9:45 AM EST Office Visit [facility] MEDICINE [address] [place] [address] Daija Concepcion NP [address] [place] [address] documented as of this encounter Visit Diagnoses Not on filedocumented in this encounter Care Teams Continuous Improvement Engineer Relationship Specialty Start Date End Date Liliya Martinez FNP PCP - General Family Medicine 02/17/22 05/24/23 Daija Concepcion NP [address] [place] [address] PCP - General Family Medicine 05/25/23 documented as of this encounter
--- OUTSIDE RECORDS SUMMARY | 2025-04-17 12:47 | XMS_ITS | Encounter Summary ---
Author Organization [employer] Address 75 [facility] 7t [place] [address] Care Team Providers Care Loan Expeditor Name Role Phone Daija Concepcion NP Primary Care Provider [phone] Encounter Details Date Type Department Care Team (Latest Contact Info) Description 04/10/2025 Results Follow-Up [facility] MEDICINE [address] [place] [address] Daija Concepcion NP [address] [place] [address] BI Mammogram Screening Tomosynthesis Bilateral Social History Tobacco Use Types Packs/Day Years [...] Visit [facility] MEDICINE [address] [place] [address] Daija Concepcion NP [address] [place] [address] documented as of this encounter Visit Diagnoses Not on filedocumented in this encounter Additional Health Concerns Assessment Noted Time PHQ-9 Depression Total Score: 1 01/08/20 25 11:43 AM EDT documented as of this encounter Care Teams Loan Expeditor Relationship Specialty Start Date End Date Daija Concepcion NP [address] [place] [address] PCP - General Family Medicine 05/25/23 documented as of this encounter
--- OUTSIDE RECORDS SUMMARY | 2025-04-17 12:47 | XMS_ITS | Encounter Summary ---
Author Organization [employer] Address 75 [facility] 7t [place] [address] Care Team Providers Care Assembler Mechanical Ordnance Name Role Phone Liliya MartinezP Primary Care Provider Lucy vailable Daija Concepcion NP Primary Care Provider [phone] Encounter Details Date Type Department Care Team (Late st Contact Info) Description 11/15/2022 Orders Only [facility] MED & PEDS [address] [place] [address] Cristin Carrasquillo LPN Social History Tobacco Use [...] 9:45 AM EST Office Visit [facility] MEDICINE [address] [place] [address] Daija Concepcion NP [address] [place] [address] documented as of this encounter Visit Diagnoses Not on filedocumented in this encounter Care Teams Assembler Mechanical Ordnance Relationship Specialty Start Date End Date Liliya Martinez FNP PCP - General Family Medicine 02/17/22 05/24/23 Daija Concepcion NP [address] [place] [address] PCP - General Family Medicine 05/25/23 documented as of this encounter
--- OUTSIDE RECORDS SUMMARY | 2025-04-17 12:47 | XMS_ITS | Encounter Summary ---
Author Organization [employer] Address [address] [facility] 7t [place] [address] Care Team Providers Care Cloth Picker Name Role Phone Daija Concepcion SILK SCREEN REPAIRER Primary Care Provider [phone] Reason for Visit * Reason Comments Med Refill Encounter Details Date Type Department Care Team ([facility] st Contact Info) Description 11/18/[address] [facility] MEDICINE [address] [place] [address] Daija Concepcion NP [address] [place] [address] Social History Tobacco Use Types Packs/Day Years [...] Description 07/15/2025 9:45 AM EST Office Visit [facility] MEDICINE [address] [place] [address] Daija Concepcion NP [address] [place] [address] documented as of this encounter Visit Diagnoses Not on filedocumented in this encounter Additional Health Concerns Assessment Noted Time PHQ-9 Depression Total Score: 0 07/25/20 10:00 AM EST documented as of this encounter Care Teams Cloth Picker Relationship Specialty Start Date End Date Daija Concepcion NP [address] [place] [address] PCP - General Family Medicine 05/25/23 documented as of this encounter
--- OUTSIDE RECORDS SUMMARY | 2025-04-17 12:47 | XMS_ITS | Encounter Summary ---
Author Organization [employer] Address [address] [facility] [address]t [place] [address] Care Team Providers Care Med Surg Nurse Name Role Phone Daija Concepcion NP Primary Care Provider [phone] Reason for Visit * Reason Onset Date Comments Med Refill 12/19/2024 Encounter Details Date Type Department Care Team ([facility] st Contact Info) Description 12/19/2024 Telephone [facility] [address] [place] [address] Daija Concepcion NP [address] [place] [address] Med Refill Social History Tobacco Use Types [...] Telephone Encounter - Cristin Carrasquillo LPN - 12/19/2024 10:13 AM EDT Medication pended to PCP. * Telephone Encounter - Alec Ramos - 12/19/2024 9:57 AM EDT TC from pt requesting medication refill. Medications needing refill : aspirin 81 MG chewable tablet hydroCHLOROthiazide (HYDRODiuril) 12.5 MG tablet To be sent to: [id number] AT [facility] documented in this encounter Plan of Treatment Upcoming Encounters Date Type Department Care Team (Late st Contact Info) Description 07/15/2025 9:45 AM EST Office Visit [facility] [address] [place] [address] Daija Concepcion NP [address] [place] [address] documented as of this encounter Visit Diagnoses Not on filedocumented in this encounter Additional Health Concerns Assessment Noted Time PHQ-9 Depression Total Score: 0 07/25/20 23 10:00 AM EST documented as of this encounter Care Teams Med Surg Nurse Relationship Specialty Start Date End Date Daija Concepcion NP [address] [place] [address] PCP - General Family Medicine 05/25/23 documented as of this encounter
--- OUTSIDE RECORDS SUMMARY | 2025-04-17 12:47 | XMS_ITS | Encounter Summary ---
Author Organization [employer] Address [address] [facility] [address] [place] [address] Care Team Providers Care Talent Manager Name Role Phone Daija Concepcion RETAIL BAKERY MANAGER Primary Care Provider [phone] Reason for Visit * Reason Comments Med Refill Encounter Details Date Type Department Care Team ([facility] st Contact Info) Description 02/24/2024 Refill [facility] [address] [place] [address] Daija Concepcion NP [address] [place] [address] Social History Tobacco Use Types Packs/Day Years [...] Description 07/15/2025 9:45 AM EST Office Visit [facility] [address] [place] [address] Daija Concepcion NP [address] [place] [address] documented as of this encounter Visit Diagnoses Not on filedocumented in this encounter Additional Health Concerns Assessment Noted Time PHQ-9 Depression Total Score: 0 07/25/20 10:00 AM EST documented as of this encounter Care Teams Talent Manager Relationship Specialty Start Date End Date Daija Concepcion NP [address] [place] [address] PCP - General Family Medicine 05/25/23 documented as of this encounter
--- OUTSIDE RECORDS SUMMARY | 2025-04-17 12:47 | XMS_ITS | Clinical Summary ---
Author Organization [employer] Address [address] [facility] 7[address] [place] [address] Care Team Providers Care Director Construction Services Name Role Phone Daija Concepcion MEMO Primary Care Provider [phone] Allergies No known active allergies Medications acetaminophen (Tylenol) 500 MG tablet Take by mouth. Active multivitamin-iro j-tbyxehxn-hsxhu acid (Centrum) chewable tablet Chew 1 tablet in the morning. Active loratadine (Claritin) 10 MG tabletIndication s:Seasonal allergies Take 1 tablet (10 mg) by mouth in the morning. 90 tablet 1 01/20/20 23 Active Blood Glucose Monitoring Suppl (FreeStyle Blum Lite) w/Device kitIndications:T ype 2 diabetes mellitus without complication, without long-term current use of insulin ([facility]) Use to test blood sugar one times daily 1 kit 1 12/19/19 24 Active Alcohol Swabs (Alcohol Prep) 70 % padsIndications: Type 2 diabetes mellitus without complication, without long-term current use of insulin ([facility]) USE TO TEST BLOOD SUGAR ONCE DAILY 100 each 07/11/20 24 Active FreeStyle lancetsIndicatio ns:Type 2 diabetes mellitus without complication, without long-term current use of insulin ([facility]) USE TO TEST BLOOD SUGAR ONE TIME DAILY 100 each 07/11/20 24 Active hydroCHLOROthiaz yousuf 12.5 MG tabletIndication s:Essential hypertension TAKE 1 TABLET(12.5 MG) BY MOUTH DAILY 90 tablet 1 12/23/19 25 Active aspirin 81 MG chewable tabletIndication s:Essential hypertension CHEW AND SWALLOW 1 TABLET(81 MG) BY MOUTH DAILY 90 tablet 1 12/23/19 25 Active atorvastatin (Lipitor) 10 MG tablet TAKE 1 TABLET(10 MG) BY MOUTH DAILY 90 tablet 01/24/20 25 Active amLODIPine (Norvasc) 5 MG tablet TAKE 1 TABLET(5 MG) BY MOUTH DAILY 90 tablet 02/26/20 25 Active metFORMIN (Glucophage) 500 MG tabletIndication s:Type 2 diabetes mellitus without complication, without long-term current use of insulin (CMS/HCC) TAKE 1 TABLET BY MOUTH WITH BREAKFAST AND DINNER 180 tablet 1 04/16/20 25 Active FREESTYLE LITE test stripIndications :Type 2 diabetes mellitus without complication, without long-term current use of insulin (CMS/HCC) Use to test blood sugar one times daily 100 each 12 03/28/20 24 025 metFORMIN (Glucophage) 500 MG tabletIndication s:Type 2 diabetes mellitus without complication, without long-term current use of insulin (CMS/HCC) TAKE 1 TABLET BY MOUTH WITH BREAKFAST AND WITH EVENING MEAL 180 tablet 01/15/20 25 025 Discontinued Active Problems Problem Noted Date Diagnosed Date Screening for colon cancer 09/10/2024 Assessment & Plan (01/07/2025 1:45 PM EDT): -positive Cologuard in Aug 2024 w/ referral to GI placed -discussed importance of completing colonoscopy. Patient is provided [facility]'s phone number and encouraged to call for an appointment. MA will also call GI team to call on the patient's behalf for an appointment. Assessment & Plan (09/10/2024 11:06 AM EST): [...] drainage present Routine adult health maintenance 01/19/2023 Assessment & Plan (01/07/2025 1:47 PM EDT): -patient scheduled to receive 2nd dose of zoster vaccine in pharmacy 01/09/25 at 11 am -pending appointment for mammogram Assessment & Plan (12/18/2023 9:19 PM EDT): [...] for osteoporosis screening -obtained flu shot at [facility]. Will bring documentation to next appointment -RSV vax order sent to [facility]. PCV20 vax received in [facility] today -Hepatitis B & C screen ordered today -referred for Seasonal allergies 01/19/2023 Heartburn 01/19/2023 Type 2 diabetes mellitus wit hout complication, without long-term current use of insulin 01/19/2023 Assessment & Plan (01/07/2025 1:41 PM EDT): -controlled -A1c 5.6% today and POCT 125 mg/dL -continue current regimen: metformin 500 mg two times daily -diet and exercise reviewed -routine vision screening completed 1 day ago Assessment & Plan (09/10/2024 12:20 PM EST): [...] regurg Essential hypertension 01/12/2023 Assessment & Plan (01/07/2025 1:40 PM EDT): -stable -continue current regimen: hydrochlorothiazide 12.5mg and amlodipine 5 mg -reviewed diet and physical activity requirements Assessment & Plan (09/10/2024 12:24 PM EST): [...] Encounters Date Type Department Care Team Description 04/16/2025 Refill [facility] [address] [place] [address] Daija Concepcion NP Type 2 diabetes mellitus without complication, without long-term current use of insulin ([facility]) 04/15/2025 Telephone [facility] [address] [place] [address] Daija Concepcion NP november 04/10/2025 Telephone [facility] [address] [place] [address] Johny Estrella [place] Mammo results 04/10/2025 Results Follow-Up [facility] [address] [place] [address] Daija Concepcion NP BI Mammogram Screening Tomosynthesis Bilateral 03/27/2025 Orders Only [facility] [address] [place] [address] Daija Concepcion NP 02/24/2025 Refill [facility] [address] [place] [address] Daija Concepcion NP 01/22/2025 Refill [facility] [place] [address] Daija Concepcion NP from Last 3 Months Immunizations Immunization Administration Dates Next Due Influenza High-dose Quadriva lent Preservative Free 05/26/2022 Influenza Quadrivalent Adjuvanted 05/23/2023 Influenza injectable quadriv alent IIV4 with preservative 07/01/2018,06/29/2017,04/24/2016 Influenza injectable quadriv alent preservative free 05/20/2021,05/07/2020 Influenza, trivalent, adjuvanted 05/05/2024 Moderna Covid-19 Vaccine 12+ 12/29/2020,12/02/19 21 Pneumococcal Conjugate PCV 20 07/25/2023 TD (adult), 2 Lf tetanus tox oid, preservative free, adsorbed 03/28/2024 Td (adult), 5 Lf tetanus tox oid, preservative free, adsorbed 05/05/2006 Zoster, Recombinant 01/09/2025,05/07/2020 Family History Medical History Relation Name Comments [...] 90 01/07/2025 11:06 AM EDT Temperature 37 C (98.6 F) 01/07/2025 11:06 AM EDT Respiratory Rate 20 [...] Description 07/15/2025 9:45 AM EST Office Visit [facility] [address] [place], [place] [phone] Daija Concepcion NP [address] [place], [place] [phone] Health Maintenance Due Date Last Done Comments CT Colonography 1955 Colonoscopy 1955 FIT 1957 FOBT 1955 Sigmoidoscopy 1955 Alcohol/Substance Use Screening 1969 DTaP/Tdap/Td Vaccines (1 - Tdap) 03/29/2024 03/28/2024, 05/05/2006 COVID-19 Vaccine ( - season) 2024 12/29/2020, 12/01/2020 Influenza Vaccine (#1) 2025 , 05/23/2023, 05/26/2022, Additional history exists Diabetes: Hemoglobin A1C 07/10/2025 025, 09/10/2024, 03/28/2024, Additional history exists Diabetes: Foot Exam 09/10/2025 09/10/2024, 09/10/2024, 09/10/2024, Additional history exists Lipid Panel 09/17/2025 09/17/2024, 0512/2023, 07/24/2022 Depression Screening 01/07/2026 01/07/2025, 01/08/20 Diabetes: Urine Protein Screening 01/07/2026 01/07/2025, 01/02/2024 SDOH Screening 01/07/2026 01/07/2025 Tobacco Screening 01/22/2026 01/22/2025 Mammogram 03/27/2026 03/27/2025, 02/17, 02/27/2023, Additional history exists Eye Exam 01/06/2027 01/06/2025, 12/19, 01/06/2025, Additional history exists Colorectal Cancer Screening 09/19/2027 FIT DNA/Cologuard 09/19/2027 09/19/2024 RSV Patients and Patients Aged 60 years or older (1 - 1-dose 75+ series) 01/04/2032 Hepatitis C Screening Completed 07/24/2022 HPV/Cotest Discontinued 03/01/2023 Cervical Cancer Screening Discontinued Pap Smear Discontinued 03/06/2023, 03/01/2023 Pneumococcal Vaccine: 50+ Years Completed 07/25/2023 Zoster Vaccines Completed 01/09/2025, 05/07/2020 HIB Vaccines Aged Out No longer eligi [...] Procedure Name Priority Date/Time Associated Diagnosis Comments BI MAMMOGRAM SCREENING TOMOSYNTHESIS BILATERAL Routine 03/27/2025 1:05 PM EDT ALBUMIN, RANDOM URINE W/CREATININE Routine 01/07/2025 11:55 AM EDT Essential hypertension Type 2 diabetes mellitus without complication, without long-term current use of insulin (CMS/HCC) POCT GLYCATED HEMOGLOBIN, TOTAL Routine 01/07/2025 11:35 AM EDT Type 2 diabetes mellitus without complication, without long-term current use of insulin (CMS/HCC) LAB COLOGUARD COLON CANCER SCREEN Routine 09/19/2024 11:53 AM EST Screening for colon cancer LIPID PANEL, STANDARD Routine 09/17/2024 10:11 AM EST Essential hypertension Type 2 diabetes mellitus without complication, without long-term current use of insulin (CMS/HCC) Mixed hyperlipidemia HM PAP/HPV Routine 03/06/2023 HPV MRNA E6/E7 REFLEX TO HPV 16, 18/45 Routine 03/01/2023 4:00 PM EDT HEPATITIS C AB W/REFL TO HCV RNA, QN, PCR Routine 07/24/2022 10:19 AM EST from Last 3 Months or Most Recently Relevant to Health Maintenance Results * BI Mammogram Screening Tomosynthesis Bilateral (03/27/2025 1:05 PM EDT) Anatomical Region Laterality Modality Breast Bilateral Mammography 03/27/2025 1:05 PM EDT Narrative 04/06/2025 1:38 PM EDT [facility] [address] [place] [address] Mammography Report Signed Patient: Dixie Zacarias MR# : [id number] : 1955 Acct:[id number] Age/Sex: 70 / F ADM Date: 03/27/25 Loc: HO.MAMMO Attending Dr: Daija Concepcion Ordering Physician: Daija Concepcion Results: 1Negative Date of Service: 03/27/25 Follow Up: 1 Year From Orig inal Mammogram Procedure(s): MM tomosynthesis screening BI Accession Number(s): [id number] cc: Daija Concepcion EXAMINATION: MM SCREENING DIGITAL BREAST TOMOSYNTHESIS, BILATERAL CLINICAL INFORMATION: Screening. Asymptomatic. COMPARISON: Mammography: Comparison is made with available priors TECHNIQUE: Digital breast mammography with tomosynthesis is performed in both the craniocaudal and mediolateral oblique views along with computer-aided detection (CAD). FINDINGS: There are scattered areas of fibroglandular density (ACR BI-RADS breast composition Category b). There are no significant masses, abnormal calcifications, or other abnormalities. MM/MM tomosynthesis screening BI IMPRESSION: No mammographic evidence of malignancy. ASSESSMENT: BI-RADS BI-RADS 1 - Negative RECOMMENDATION: Routine annual mammography screening. 1 year F/U This examination should not preclude the clinical evaluation of a suspicious palpable abnormality. This patient's information was entered into a reminder system with a target due date for their next mammogram. Electronically signed by: Daniella Park DO 04/06/2025 01:35 PM EDT RP Dictated By: Daniella Park DO Signed By: <Electronically signed by Daniella Park DO in OV> 04/06/25 1335 DD/ 1305 TD/TT: 03/27/25 1320 Irrigation District Manager: Procedure Note Donotuseinterpreter, Image - 04/06/2025 [facility] [address] [place], [place] [address] Mammography Report Signed Patient: Dixie Zacarias [facility]# : [id number] : 7Acct:[id number] Age/Sex: 70 / FADM Date: 03/27/25 Loc: HO.MAMMO Attending Dr: Daija Concepcion Ordering Physician: Daija ConcepcionResults: 1Negative Date of Service: 03/27/25Follow Up: 1 Year From Orig inal Mammogram Procedure(s): MM tomosynthesis screening BI Accession Number(s): [id number] cc: Daija Concepcion EXAMINATION: MM SCREENING DIGITAL BREAST TOMOSYNTHESIS, BILATERAL CLINICAL INFORMATION: Screening. Asymptomatic. COMPARISON: Mammography: Comparison is made with available priors TECHNIQUE: Digital breast mammography with tomosynthesis is performed in both the craniocaudal and mediolateral oblique views along with computer-aided detection (CAD). FINDINGS: There are scattered areas of fibroglandular density (ACR BI-RADS breast composition Category b). There are no significant masses, abnormal calcifications, or other abnormalities. MM/MM tomosynthesis screening BI IMPRESSION: No mammographic evidence of malignancy. ASSESSMENT: BI-RADS BI-RADS 1 - Negative RECOMMENDATION: Routine annual mammography screening. 1 year F/U This examination should not preclude the clinical evaluation of a suspicious palpable abnormality. This patient's information was entered into a reminder system with a target due date for their next mammogram. Electronically signed by: Daniella Park DO 04/06/2025 01:35 PM EDT RP Dictated By: Daniella Park DO Signed By: <Electronically signed by Daniella Park DO in OV> 04/06/25 1335 DD/ 1305 TD/TT: 03/27/25 1320 Irrigation District Manager: us Daija Concepcion NP IMG BI PROCEDURES Final Result * Albumin, Random Urine W/Creatinine (01/07/2025 11:55 AM EDT) Creatinine, Urine 35.48 mg/dL [facility] Microalbumin Urine <5.0 mg/L [facility] Microalbum Creatinine Ratio Ur TNP <30 ug/mg cr [facility] Comment:Unable to calculate albumin/creatinine ratio due to lowmicroalbumin or creatinine result. Urine (Urine, Random) 01/07/2025 11:55 AM EDT 01/07/2025 1:01 PM EDT us Daija Concepcion NP LAB URINE ORDERABLES Final Resu lt [facility] [address] [place] [phone] * POCT HGB A1C (01/07/2025 11:35 AM EDT) Hemoglobin A1C 5.6 4.0 - 6.0 % QC Media Lot # [id number] Lot# Expiration Date Blood 01/07/2025 11:3 5 AM EDT Daija Concepcion MEMO POINT OF CARE TEST ENTER/EDIT O RDERABLES Final Result * (ABNORMAL) Cologuard?? colon cancer screening (09/19/2024 11:53 AM EST) Cologuard Result Positive( A) Negative 09/27/2024 4:11 AM EST [facility] (CLIA #:[id number]) Comment: POSITIVE TEST RESULT. A positive Cologuard result should be followed with a colonoscopy or visual examination of the colon. The normal value (reference range) for this assay is negative. TEST DESCRIPTION: Composite algorithmic analysis of stool DNA-biomarkers with hemoglobin immunoassay. Quantitative values of individual biomarkers are not [...] screened with both Cologuard and colonoscopy. (Naeem Talbert al, N Engl J Med 2014;370(14):9960-4662.) Cologuard may produce a false negative or false positive result (no colorectal cancer or precancerous polyp present at colonoscopy follow up). A negative Cologuard test result does not guarantee the absence of CRC or advanced adenoma (pre-cancer). The current Cologuard screening interval is every 3 years. ([place] [employer] and U.S. Multi-Society Task Force). Cologuard performance data in a 10,000 patient pivotal study using colonoscopy as the reference method can be accessed at the following location: www.[email or web address]/results. Additional description of the Cologuard test process, warnings and precautions can be found at www.[email or web address].com. Stool specimen (specimen) 09/19/2024 11:53 AM EST 09/20/2024 12:33 PM EST Daija Cast PETROLEUM ANALYST LAB MOLECULAR DIAGNOSTICS ORDER IMANI Final Result [facility] (CLIA #:[id number]) [address] [place] [address], * (ABNORMAL) Lipid Panel, Standard (09/17/2024 10:11 AM EST) Triglycerides 118 <150 mg/dL [facility] Comment:Desirable Triglyceri de: less than 150 mg/dLBorderline High Triglyceride 150-199 mg/dLHigh Triglyceride: 200-499 mg/dLVery High Triglyceride: greater than or equal to 5OO mg/dL Cholesterol 116 <200 mg/dL [facility] Comment:Desirable Cholestero l: less than 200 mg/dLBorderline High Cholesterol: 200-239 mg/dLHigh Cholesterol: greater than 239 mg/dL LDL Cholesterol Calculated 60 <100 mg/dL [facility] Comment:Desirable LDL: less than 100 mg/dLNear Optimal/Above Optimal LDL: 110- 129 mg/dLBorderline High LDL: 130-159 mg/dLHigh LDL: 160-189 mg/dLVery High LDL: greater than or equal to 190 mg/dL HDL Cholesterol 33(L) >40 mg/dL [facility] Comment:Desirable HDL: great er than 40 mg/dL Note: This HDL assay may give artificially low results in patients with liver disease. Blood Venous blood specimen / Unknown 09/17/2024 10:11 AM EST 09/17/2024 11:25 AM EST Daija Jamey PETROLEUM ANALYST LAB BLOOD ORDERABLES Final Resu lt Performing Organization Address City/[facility]/ZIP Co de Phone Number [facility] [address] [place] [address] [phone] * Hm Pap Smear (03/06/2023) Pap Negative for intraephithelial lesion or malignancy Negative for intraephithelial lesion or malignancy, Other Liliya Martinez [facility] Final R esult * HPV mRNA E6/E7 w/Reflex to HPV Genotypes 16, 18/45 (03/01/2023 4:00 PM EDT) HPV nRNA E6/E7 Not Detected Not Detected [facility] Comment:Methodology: Transcr iption-Mediated AmplificationThis assay detects E6/E7 viral messenger RNA (mRNA) from 14high-risk HPV types (16,18,31,33,35,39,45,51,52,56,58,59,66,68).Cervical sources are required for HPV testing.If a vaginal source from a patient who has had atotal hysterectomy with removal of cervix wassubmitted, please contact the testing laboratoryfor alternative testing options.For additional information, please refer tohttp://education.DriftToIt/faq/RHL893q6(This link if provided for information/educational purposes only.)THIS TEST WAS PERFORMED AT:[employer] [place] [id number] APPIAH MD HPV mRNA E6/E7 OKP [facility] HPV 16 RNA [facility] HPV 18/45 RNA [facility] 03/01/2023 4:00 PM EDT 03/05/2023 11:10 AM EDT Liliya Martinez [facility] CYTOLOGY ORDERABLES Fi nal Result Performing Organization Address City/[facility]/ZIP Co de Phone Number [facility] [address] [place] [address] [phone] * Hepatitis C Antibody with Reflex to HCV, RNA, Quantitative, Real-Time PCR (07/24/2022 10:19 AM EST) Hepatitis C Antibody NON-REACT LAUREL NON-REACT LAUREL [employer] Index 0.07 <1.00 [employer] Comment: HCV antibody was non-reactive. There is no laboratory evidence of HCV infection. In most cases, no further action is required. However, if recent HCV exposure is suspected, a test for HCV RNA (test code 52521) is suggested. For additional information please refer to http://education.DriftToIt/faq/DOF22u4 (This link is being provided for informational/ educational purposes only.) 07/24/2022 10:1 9 AM EST 07/24/2022 10:20 AM EST Narrative [facility] - 07/25/2022 9:03 PM EST FASTING:YES FASTING: YES Liliya Martinez [facility] [facility] [facility] BLOOD ORDERABLES Final Result Performing Organization Address [facility] de Phone Number [facility] [address], [facility] [place] [phone] [employer] [place] [employer] [address] [place] [phone] from Last 3 Months or Most Recently Relevant to Health Maintenance Insurance MEDICARE [facility] Care Teams Director Construction Services Relationship Specialty Start Date End Date Daija Concepcion NP [address] [place] [phone] PCP - General Family Medicine 05/25/23
--- OUTSIDE RECORDS SUMMARY | 2025-04-17 12:47 | XMS_ITS | Encounter Summary ---
Author Organization [employer] Address [address] [place] [address] Care Team Providers Care Acid Condenser Name Role Phone Daija Concepcion NP Primary Care Provider [phone] Reason for Visit * Reason Onset Date Comments Med Refill 07/21/2024 Encounter Details Date Type Department Care Team ([facility] st Contact Info) Description 07/21/2024 Telephone [facility] MEDICINE [address] [place] [address] Daija Concepcion NP [address] [place] [address] Med Refill Social History Tobacco Use Types [...] AM ROMEROT Cailin Ramos MA * Trouble falling or staying asleep, or sleeping too much Answer Date of Assessment Author Several days 01/07/2025 11:43 AM EDT Cailin Ramos MA * Feeling tired or having little energy Answer Date of Assessment Author Not at all 01/07/2025 11:43 AM ROMEROT Cailin Ramos MA * Poor appetite or overeating Answer Date of Assessment Author Not at all 01/07/2025 11:43 AM ROMEROT Cailin Ramos MA * Feeling bad about [...] or on edge 0 01/07/2025 11:43 AM Cailin Roman MA Not being able to stop or co ntrol worrying 0 01/07/2025 11:43 AM Cailin Roman MA Worrying too much about diff erent things 1 01/07/2025 11:43 AM Cailin Roman MA Trouble relaxing 0 01/07/2025 11:43 AM Cailin Roman MA Being so restless that it is hard to sit still 0 01/07/2025 11:43 AM Cailin Roman MA Becoming easily annoyed or irritable 0 01/07/2025 11:43 AM Cailin Roman MA Feeling afraid as if somethi ng awful might happen 0 01/07/2025 11:43 AM Cailin Roman MA YOANDY-7 Total Score 1 01/07/2025 11:43 AM EDT Cailin Ramos MA documented as of this encounter Miscellaneous Notes * Telephone Encounter - Cristin Carrasquillo LPN - 07/21/2024 3:09 PM EST Medication pended to PCP. * Telephone Encounter - Lilian Iniguez - 07/21/2024 2:59 PM EST TC from pt requesting medication refill. Medications needing refill : amLODIPine (Norvasc) 5 MG tablet To be sent to: [id number] - [place] - [address] [facility] documented in this encounter Plan of Treatment Upcoming Encounters Date Type Department Care Team (Late st Contact Info) Description 07/15/2025 9:45 AM EST Office Visit [facility] MEDICINE [address] [place] [address] Daija Concepcion NP [address] [place] [address] documented as of this encounter Visit Diagnoses Not on filedocumented in this encounter Additional Health Concerns Assessment Noted Time PHQ-9 Depression Total Score: 0 07/25/20 10:00 AM EST documented as of this encounter Care Teams Acid Condenser Relationship Specialty Start Date End Date Daija Concepcion NP [address] [place] [address] PCP - General Family Medicine 05/25/23 documented as of this encounter
== END 2025-04-17 12:31 | disposition home or self-care (01) ==
LOC: HO.HGI 11:51
PROVIDERS: PCP Nurse Practitioner; Visit Provider Nurse Practitioner Family
DX: Z01.818 Encounter for other preprocedural examination (principal); Z12.11 Encounter for screening for malignant neoplasm of colon
CPT/HCPCS: 99024

== ENCOUNTER → 2025-04-17 11:50 | Outpatient (BNVA) | payer MEDICARE, SELFPAY | PROVIDERS: PCP Nurse Practitioner; Visit Provider Nurse Practitioner Family | DX: Z12.11 Encounter for screening for malignant neoplasm of colon (principal) | CPT/HCPCS: 99212 ==

== ENCOUNTER 2025-04-23 12:30 | Day surgery (SDC) | payer MEDICARE, SELFPAY ==
[2025-04-23 13:06] VITALS: BMI 26.7
[2025-04-23 13:13] VITALS: BP 150/62; PULSE 94; RESP 18; TEMP 36.9; O2SAT 100
--- NOTE | 2025-04-23 13:18 | MHC.SHP ---
Pre-Procedural Eval Section A - 24 Hr Update-Section A only Date of Service: 04/23/25 The patient is an INPATIENT: No The patient has been examined within 24 hours of the surgical procedure. The History & Physical has been completed within 30 days and I have reviewed it.: Yes Section B - Complete if H&P > 30 days Chief Complaint: Other fecal abnormalities,screening Allergies: Allergies Allergy/AdvReac Type Severity Reaction Status Date / Time No Known Allergies Allergy Verified 04/17/25 12:00 Plan Diagnosis/Plan: Unchanged I have reviewed the history and physical and performed a pertinent physical examination on my patient. No changes have occurred unless specified. Time Spent With Patient Time: Total time managing care of this patient today ____ minutes.
[2025-04-23 13:23] LABS: Glucose, Whole Blood 87 mg/dL (60-115)
--- NOTE | 2025-04-23 13:30 | P.CONAN_ITS ---
Documented by User: Rebecca Rodriguez NP 04/22/25 10:58 HPI - Anesthesia Eval Consult details Narrative: 70 yr old female for colonoscopy [facility] Past Medical History Medical History (Updated 04/17/25 @ 12:56 by KUN Whiteside) Hyperlipidemia Diabetes HTN (hypertension) Social History Social History Patient Tobacco Use Status: Never used Tobacco Use of substances other than those prescribed or required for medical reasons: No Are you DNR?: No Advance Directives: No Advance Directives Information Provided: Yes Meds Allergies Allergy/AdvReac Type Severity Reaction Status Date / Time No Known Allergies Allergy Verified 04/17/25 12:00 Home Medications ?Medication ?Instructions ?Recorded ?Confirmed ?Last Taken ?Type amlodipine 5 mg tablet 5 mg PO DAILY 01/07/24 Unkn own History metformin 500 mg tablet 500 mg PO BID 01/07/24 Unkn own History aspirin 81 mg chewable tablet 1 tab PO DAILY 04/10/25 Unknown History atorvastatin 10 mg tablet 10 mg PO DAILY 04/10/25 Unk nown History hydrochlorothiazide 12.5 mg tablet 12.5 mg PO DAILY Unknown History lancets 28 gauge (FreeStyle #100 ea 04/10/25 Unknown History Lancets) Documented by User: Evie Cast DO 04/23/25 14:21 [facility] Past Medical History Medical History (Updated 04/17/25 @ 12:56 by KUN Whiteside) Hyperlipidemia Diabetes HTN (hypertension) Family History Family history of problems with anesthesia: No Surgical History History of Problems with Anesthesia: No Social History Social History Patient Tobacco Use Status: Never used Tobacco Use of substances other than those prescribed or required for medical reasons: No Are you DNR?: No Advance Directives: No Advance Directives Information Provided: Yes Meds Allergies Allergy/AdvReac Type Severity Reaction Status Date / Time No Known Allergies Allergy Verified 04/17/25 12:00 Home Medications ?Medication ?Instructions ?Recorded ?Confirmed ?Last Taken ?Type amlodipine 5 mg tablet 5 mg PO DAILY 01/07/24 Unkn own History metformin 500 mg tablet 500 mg PO BID 01/07/24 Unkn own History aspirin 81 mg chewable tablet 1 tab PO DAILY 04/10/25 Unknown History atorvastatin 10 mg tablet 10 mg PO DAILY 04/10/25 Unk nown History hydrochlorothiazide 12.5 mg tablet 12.5 mg PO DAILY Unknown History lancets 28 gauge (FreeStyle #100 ea 04/10/25 Unknown History Lancets) Exam Exam Date and Time: 04/23/25 1330 Height,Weight and Vital Signs: Height 5 ft 3 in Weight 68.492 kg Vital Signs Temperature 98.4 F 04/23/25 13:13 Pulse Rate 94 04/23/25 13:13 Respiratory Rate 18 04/23/25 13:13 Blood Pressure 150/62 H 04/23/25 13:13 Pulse Oximetry 100 04/23/25 13:13 Oxygen Delivery Method Room Air 04/23/25 13:13 Temperature 98.4 F 04/23/25 13:13 Pulse Rate 94 04/23/25 13:13 Respiratory Rate 18 04/23/25 13:13 Blood Pressure 150/62 H 04/23/25 13:13 Pulse Oximetry 100 04/23/25 13:13 Oxygen Delivery Method Room Air 04/23/25 13:13 Airway Mallampati Class: III TM Dist: >3cm Neck ROM: Full Loose/Missing/Broken Teeth: No (patient denies any loose or broken teeth) Heart: S1S2 Lungs: CTAB Assessment and Plan Assessment Anesthesia Assessment: Anesthesia Plan Discussed and Chart Reviewed Final Anesthetic Review Family History of Problems with Anesthesia: No History of Problems with Anesthesia: No NPO: Yes ASA Class: II Final Preanesthetic Review: No Changes in Pt Med Stat, Meds/Allgs Chart Reviewed, Consent Obtained/Reviewed and Anes Risks/Benef Reviewed Patient Risk: Low Procedure Risk: Low Anesthetic Plan Anesthetic Plan: MAC: and Agree w/ Assess. and Plan Disposition: Standard PACU
--- NOTE | 2025-04-23 14:56 | P.OP_ITS ---
Operative Note Operative Note Date of Service: 04/23/25 Narrative: Procedure: Colonoscopy Indication: Positive cologuard Endoscopist: Tete Katz MD Anesthesia Provider: Melania Ricci CRNA Anesthesia type: MAC Instrument: Olympus [id number]-H190L Consent: Indication, risks vs benefits, and alternatives were discussed with the patient who gave written informed consent to proceed. EKG, pulse, pulse oximetry and blood pressure were monitored throughout the procedure. Please see anesthesia flowsheet. Procedure: The patient was brought to the procedure room and placed in the left lateral decubitus position. IV medications were administered by the anesthesia provider in attendance. A digital rectal exam was performed which was normal. The colonoscope was then inserted through the anus and advanced through the colon to the cecum at 75 cm,and terminal ileum. Mucosa was carefully examined under high definition white light as the instrument was slowly withdrawn in a retrograde panoramic fashion. Retroflexion was performed in rectum. The procedure was not difficult. There were no immediate obvious complications. The quality of the prep was BBPS: 2+2+2 = adequate Withdrawal time 8 minutes. Limitations: No limitations. Findings: Mucosa: Normal to cecum and terminal ileum. Protruding lesions: * Medium internal hemorrhoids without stigmata of recent bleeding. Excavated lesions: * Diffuse diverticulosis of whole colon. Impression: 1. Normal colon mucosa 2. Diverticulosis 3. Internal hemorrhoids Recommendations: - Repeat colonoscopy in 10 years for asymptomatic colorectal cancer screening.
[2025-04-23 15:03] VITALS: BP 102/55; PULSE 83; RESP 16; TEMP 36.3; O2SAT 99
[2025-04-23 15:18] VITALS: BP 130/60; PULSE 82; RESP 16; TEMP 36.9; O2SAT 100
== END 2025-04-23 15:30 | disposition home or self-care (01) ==
PROVIDERS: PCP Nurse Practitioner; Visit Provider Internal Medicine
PROC: 0DJD8ZZ Inspection of Lower Intestinal Tract, Via Natural or Artificial Opening Endoscopic (ICD-10-PCS; CPT 45378; principal; 2025-04-23 14:40)
DX: R19.5 Other fecal abnormalities (principal); K57.30 Diverticulosis of large intestine without perforation or abscess without bleeding; K64.8 Other hemorrhoids; E11.9 Type 2 diabetes mellitus without complications; I10 Essential (primary) hypertension; E78.5 Hyperlipidemia, unspecified
CPT/HCPCS: G0121; 82947; J2003; J2704

== ENCOUNTER → 2025-04-23 12:30 | Outpatient (BNV) | payer MEDICARE, SELFPAY | PROVIDERS: PCP Nurse Practitioner; Visit Provider Internal Medicine | DX: Z12.11 Encounter for screening for malignant neoplasm of colon (principal); R19.5 Other fecal abnormalities; K57.90 Diverticulosis of intestine, part unspecified, without perforation or abscess without bleeding; K64.8 Other hemorrhoids | CPT/HCPCS: G0121 ==

== ENCOUNTER 2025-07-15 10:21 | Outpatient (REF) | payer MEDICARE, MEDICAID, SELFPAY ==
--- OUTSIDE RECORDS SUMMARY | 2025-07-15 09:45 | XMS_ITS | Encounter Summary ---
Author Organization [employer] Address [address] [facility] [address] [place] [address] Care Team Providers Care School Crossing Guard Supervisor Name Role Phone Daija Concepcion NP Primary Care Provider [phone] Reason for Visit * Reason Comments Follow-up Encounter Details Date Type Department Care Team ([facility] st Contact Info) Description 07/15/2025 9:45 AM EST Office Visit [facility] MED[facility] [address] [place] [address] Daija Concepcion NP [address] [place] [address] Essential hypertension (Primary Dx); Mixed hyperlipidemia; Type 2 diabetes mellitus without complication, without long-term current use of insulin (HCC); Leg cramping; Routine health maintenance; Diverticulosis of colon; Internal hemorrhoids Social History Tobacco Use Types Packs/Day Years [...] Sign Reading Time Taken Comments Blood Pressure 132/86 07/15/2025 9:50 AM EST Pulse 78 07/15/2025 9:50 AM EST Temperature 36.9 C (98.5 F) 07/15/2025 9:50 AM EST Respiratory Rate 18 07/15/2025 9:50 AM EST Oxygen Saturation 99% 07/15/2025 9:50 AM EST Inhaled Oxygen Concentration - - Weight 68.8 kg (151 lb 9.6 oz) 07/15/2025 9:50 A M EST Height 160 cm (5' 3 ) 07/15/2025 9:50 AM EST Body Mass Index 26.85 07/15/2025 9:50 AM EST documented in this encounter Progress Notes * Daija Concepcion NP - 07/15/2025 9:45 AM EST Subjective Patient ID: Dixie Huizar is a 70 y.o. who presents for chronic disease management. HPI Dixie Huizar, 70-year-old female - History of diabetes, hypertension, and hyperlipidemia here for routine follow-up - Notes intermittent cramping of left leg - Home blood sugar readings reported between 90 and 120 mg/dL, with recent values of 115 and 107 mg/dL - Reports taking hydrochlorothiazide and amlodipine for hypertension, metformin for diabetes, atorvastatin for hyperlipidemia, and baby aspirin - Denies chest pain, shortness of breath, increased thrist, urination, excessive hunger - Diabetic eye exam in January 2025 noted cataracts but no diabetic retinopathy or edema - Colonoscopy noted diverticulosis, with recommendation to repeat in 10 years - Denies alcohol and tobacco use Colonoscopy: completed April 23, 2025. Diverticulosis of entire colon; internal hemorrhoids. Repeat 10 yrs for routine screening Problem List[1] Review of Systems Constitutional: Negative for appetite change, fatigue and unexpected weight change. Eyes: Negative for visual disturbance. Respiratory: Negative for cough, chest tightness and shortness of breath. Cardiovascular: Negative for chest pain, palpitations and leg swelling. Endocrine: Negative for polydipsia, polyphagia and polyuria. Genitourinary: Negative for dysuria and urgency. Neurological: Negative for dizziness, light-headedness and headaches. All other systems reviewed and are negative. BP 132/86 (BP Location: Left arm, Patient Position: Sitting, BP Cuff Size: Adult) Pulse 78 Temp98.5 ??F (36.9 ??C) (Oral) Resp 18 Ht 5' 3 (1.6 m) Wt 151 lb 9.6 oz (68.8 kg) BMI 26.85 kg/m?? Physical Exam Vitals reviewed. Constitutional: General: She is not in acute distress. Appearance: Normal appearance. She is not ill-appearing. HENT: Head: Normocephalic and atraumatic. Right Ear: External ear normal. Left Ear: External ear normal. Nose: Nose normal. Eyes: General: No scleral icterus. Extraocular Movements: Extraocular movements intact. Cardiovascular: Rate and Rhythm: Normal rate and regular rhythm. Pulses: Dorsalis pedis pulses are 2+ on the right side and 1+ on the left side. Posterior tibial pulses are 1+ on the right side and 1+ on the left side. Heart sounds: Normal heart sounds. Pulmonary: Effort: Pulmonary effort is normal. No respiratory distress. Breath sounds: Normal breath sounds. Musculoskeletal: General: Normal range of motion. Cervical back: Normal range of motion. Right foot: Normal range of motion. No deformity. Left foot: Normal range of motion. No deformity. Feet: Right foot: Protective Sensation: 5 sites tested. 5 sites sensed. Skin integrity: Skin integrity normal. No ulcer, blister, skin breakdown, erythema, callus, dry skin or fissure. Left foot: Protective Sensation: 5 sites tested. 5 sites sensed. Skin integrity: Skin integrity normal. No ulcer, blister, skin breakdown, erythema, callus, dry skin or fissure. Neurological: General: No focal deficit present. Mental Status: She is alert and oriented to person, place, and time. Gait: Gait normal. Psychiatric: Mood and Affect: Mood normal. Behavior: Behavior normal. - CARDIOVASCULAR: Normotensive in the office. - NEUROLOGIC: Intact sensation bilaterally in feet. Office Visit on 07/15/2025 Component Date Value Hemoglobin A1C 07/15/2025 5.9 (A) QC Media Lot # 07/15/2025 [id number] Lot# Expiration Date 07/15/2025 51,227 Glucose Blood, POC 07/15/2025 106 QC Media Lot # 07/15/2025 [id number] Lot# Expiration Date 07/15/2025 7,726 Orders Only on 04/23/2025 Component Date Value Glucose, Whole Blood 04/23/2025 87 IMAGES: - Hemoglobin A1c: 5.9% (previously 5.6%) - Diabetic eye exam (January 2025): presence of cataracts; no diabetic retinopathy; no macular edema - Colonoscopy: diverticulosis; no polyps or other abnormalities; recommendation to repeat in 10 years Assessment & Plan Essential hypertension Orders: Basic Metabolic Panel; Future Hepatic Function Panel; Future Lipid Panel, Standard; Future Mixed hyperlipidemia Orders: Basic Metabolic Panel; Future Hepatic Function Panel; Future Lipid Panel, Standard; Future Type 2 diabetes mellitus without complication, without long-term current use of insulin ([facility]) Orders: POCT Hgb A1c POCT Glucose Basic Metabolic Panel; Future Hepatic Function Panel; Future Lipid Panel, Standard; Future Leg cramping Routine health maintenance Diverticulosis of colon Internal hemorrhoids -noted on colonoscopy -asymptomatic -recommend regular fiber intake Essential hypertension: - Essential hypertension, well controlled on current regimen. - Continue hydrochlorothiazide and amlodipine. - Encouraged daily walking exercise for at least 30 minutes. Follow-up in 4 months. Mixed hyperlipidemia: - Mixed hyperlipidemia, on atorvastatin (Lipitor). - Continue atorvastatin 10 mg. - Ordered blood work to check cholesterol levels. - Encourage daily walking exercise for at least 30 minutes. Follow-up in 4 months. Type 2 diabetes mellitus without complication, without long-term current use of insulin (HCC): - Type 2 diabetes mellitus, well controlled with metformin. No evidence of diabetic retinopathy or edema. Hemoglobin A1c increased from 5.6 to 5.9. - Continue metformin 500mg twice daily. - Encourage daily walking exercise for at least 30 minutes. Ordered blood work to check glucose andA1c. Instructed to avoid sweets. Follow-up in 4 months. Leg cramps: - Leg cramps, possible etiology includes electrolyte imbalance. - Ordered blood work to check potassium levels. Will notify if abnormal results. Encourage adequatehydration and exercise. Diverticulosis: - Diverticulosis noted on colonoscopy, currently asymptomatic. - No treatment required at this time. Will monitor for symptoms or flare-ups. Based on our discussion, I have outlined the following instructions for you: - Keep taking hydrochlorothiazide and amlodipine as you have been. - Keep taking atorvastatin as you have been. - Keep taking metformin twice a day as you have been. - Get your blood tests done to check your cholesterol, blood sugar, hemoglobin A1c, and potassium levels. - Try to walk every day for at least 30 minutes, and make sure to drink enough water. - Try to avoid eating sweets. - Come back for your next appointment in 4 months. - If there are any abnormal results from your blood tests, you will be contacted. - No treatment is needed for your diverticulosis right now, but watch out for any new symptoms or flare-ups. Thank you again for your visit, and we look forward to supporting you in your journey to better health. Follow-up: 4 months for routine care or sooner as needed This note was drafted using Ambient (AI) technology. The patient/patient's guardian has been informed and has consented to the use of this technology: Yes Visit Conducted in: [place] Translation by: Provided by [employer] Phone Service ID # [id number] [1] Patient Active Problem List Diagnosis Essential hypertension Routine adult health maintenance Seasonal allergies Heartburn Type 2 diabetes mellitus without complication, without long-term current use of insulin (HCC) Dizziness Skin eruption Neck mass Screening for colon cancer Mixed hyperlipidemia Internal hemorrhoids documented in this encounter Miscellaneous Notes * Assessment & Plan Note - Daija Concepcion NP - 07/15/2025 9:45 AM ESTAssociated Problem(s): Essential hypertension Orders: Basic Metabolic Panel; Future Hepatic Function Panel; Future Lipid Panel, Standard; Future * Assessment & Plan Note - Daija Concepcion NP - 07/15/2025 9:45 AM ESTAssociated Problem(s): Mixed hyperlipidemia Orders: Basic Metabolic Panel; Future Hepatic Function Panel; Future Lipid Panel, Standard; Future * Assessment & Plan Note - Daija Concepcion NP - 07/15/2025 9:45 AM ESTAssociated Problem(s): Type 2 diabetes mellitus without complication, without long-term current useof insulin (HCC) Orders: POCT Hgb A1c POCT Glucose Basic Metabolic Panel; Future Hepatic Function Panel; Future Lipid Panel, Standard; Future * Assessment & Plan Note - Daija Concepcion NP - 07/15/2025 9:45 AM ESTAssociated Problem(s): Internal hemorrhoids -noted on colonoscopy -asymptomatic -recommend regular fiber intake documented in this encounter Plan of Treatment Scheduled Orders Name Type Priority Associated Diagnoses Orde r Schedule Basic Metabolic Panel Lab Routine Essential hypertension Mixed hyperlipidemia Type 2 diabetes mellitus without complication, without long-term current use of insulin (HCC) Expected: 07/15/2025 (Approximate), Expires: 07/15/2026 Hepatic Function Panel Lab Routine Essential hypertension Mixed hyperlipidemia Type 2 diabetes mellitus without complication, without long-term current use of insulin (HCC) Expected: 07/15/2025 (Approximate), Expires: 07/15/2026 Lipid Panel, Standard Lab Routine Essential hypertension Mixed hyperlipidemia Type 2 diabetes mellitus without complication, without long-term current use of insulin (HCC) Expected: 07/15/2025 (Approximate), Expires: 07/15/2026 documented as of this encounter Procedures Procedure Name Priority Date/Time Associated Diagnosis Comments POCT GLYCATED HEMOGLOBIN, TOTAL Routine 07/15/2025 9:58 AM EST Type 2 diabetes mellitus without complication, without long-term current use of insulin (HCC) POCT GLUCOSE Routine 07/15/2025 9:52 AM EST Type 2 diabetes mellitus without complication, without long-term current use of insulin ([facility]) documented in this encounter Results * (ABNORMAL) POCT Hgb A1c (07/15/2025 9:58 AM EST) Hemoglobin A1C 5.9(A) 4.0 - 5.7 % QC Media Lot # [id number] Lot# Expiration Date 51,227 Blood 07/15/2025 9:58 AM EST us Daija Concepcion NP POINT OF CARE TEST ENTER/EDIT O RDERABLES Final Result * POCT Glucose (07/15/2025 9:52 AM EST) Glucose Blood, POC 106 60 - 200 mg/dL QC Media Lot # [id number] Lot# Expiration Date 7,726 Blood Capillary blood specimen / Unknown 07/15/2025 9:52 AM EST us Daija Cast MEMO POINT OF CARE TEST ENTER/EDIT O RDERABLES Final Result documented in this encounter Visit Diagnoses Diagnosis Essential hypertension- Primary Unspecified essential hypertension Mixed hyperlipidemia Type 2 diabetes mellitus without complication, without long-term current use of insulin (HCC) Leg cramping Routine health maintenance Unspecified examination Diverticulosis of colon Diverticulosis of colon (without mention of hemorrhage) Internal hemorrhoids Internal hemorrhoids without mention of complication documented in this encounter Additional Health Concerns Assessment Noted Time PHQ-9 Depression Total Score: 1 01/08/20 25 11:43 AM EDT documented as of this encounter Care Teams School Crossing Guard Supervisor Relationship Specialty Start Date End Date Daija Concepcion NP [address] [place] [address] PCP - General Family Medicine 05/25/23 documented as of this encounter
--- OUTSIDE RECORDS SUMMARY | 2025-07-15 12:17 | XMS_ITS | Encounter Summary ---
Author Organization [employer] Address [address] [facility] [address] [place] [address] Care Team Providers Care Rotary Swaging Machine Operator Name Role Phone Daija Concepcion PANTOMIMIST Primary Care Provider [phone] Reason for Visit * Reason Comments Med Refill Encounter Details Date Type Department Care Team ([facility] st Contact Info) Description 11/18/2023 Refill [facility] MEDICINE [address] [place] [address] Daija Concepcion NP [address] [place] [address] Social History Tobacco Use Types Packs/Day Years [...] documented as of this encounter Care Teams Rotary Swaging Machine Operator Relationship Specialty Start Date End Date Daija Concepcion NP [address] [place] [id number] PCP - General Family Medicine 05/25/23 documented as of this encounter
--- OUTSIDE RECORDS SUMMARY | 2025-07-15 12:17 | XMS_ITS | Encounter Summary ---
Author Organization [employer] Address [address] [facility] [address] [place] [address] Care Team Providers Care Tennis Professional Name Role Phone Daija Concepcion SHAREPOINT SPECIALIST Primary Care Provider [phone] Encounter Details Date Type Department Care Team (Latest Contact Info) Description 07/15/2025 Travel Social History Tobacco Use Types Packs/Day [...] documented as of this encounter Care Teams Tennis Professional Relationship Specialty Start Date End Date Daija Concepcion NP [address] [place] [address] PCP - General Family Medicine 05/25/23 documented as of this encounter
--- OUTSIDE RECORDS SUMMARY | 2025-07-15 12:17 | XMS_ITS | Encounter Summary ---
Author Organization [employer] Address [address] [facility] [address]t [place] [address] Care Team Providers Care Sales Engineer Name Role Phone Daija Concepcion NP Primary Care Provider [phone] Reason for Visit * Reason Onset Date Comments Pre op 10/23/2023 Encounter Details Date Type Department Care Team ([facility] st Contact Info) Description 10/23/2023 Telephone [facility] [address] [place] [address] Daija Concepcion NP [address] [place] [address] Pre op Social History Tobacco Use Types [...] 11:15 AM EST T/C to pt. Through [employer] id - [id number] for below message, No answer. LVM to call back [phone]. * Telephone Encounter - Felisha Kruger - 10/24/2023 10:38 AM EST Tc from pt requesting a later time in the day for Pre-op appointment if possible. Please contact pt at [phone] ([place]) * Telephone Encounter - Royal Brown RN - 10/23/2023 4:02 PM EST T/C to [phone] for below message, pt. Schedule for pre-op apt. On 11/14. Cuca is going to inform pt. * Telephone Encounter - Lorena Pham - 10/23/2023 11:27 AM EST Date of Surgery: 11/23/23 Surgical procedure being done: cataract surgery right eye Type of anesthesia: Max Lab needed: no EKG: no Surgeon's name: Kimberly Manriquez Facility name: [facility] Surgeon's office number: [phone] ect [address] Surgeon's office fax number: [phone] Contact name (person you spoke with): Cuca Last office note from surgeon requested: no documented in this encounter Plan of Treatment Not on file documented as of this encounter Visit Diagnoses Not on filedocumented in this encounter Additional Health Concerns Assessment Noted Time PHQ-9 Depression Total Score: 0 07/25/20 10:00 AM EST documented as of this encounter Care Teams Sales Engineer Relationship Specialty Start Date End Date Daija Concepcion NP [address] [place] [address] PCP - General Family Medicine 05/25/23 documented as of this encounter
--- OUTSIDE RECORDS SUMMARY | 2025-07-15 12:17 | XMS_ITS | Encounter Summary ---
Author Organization [employer] Address [address] [facility] [address] [place] [address] Care Team Providers Care Hand Stemmer Name Role Phone Daija Concepcion NP Primary Care Provider [phone] Encounter Details Date Type Department Care Team (Late st Contact Info) Description 08/30/2023 Abstract [facility] [address] [place] [address] Daija Concepcion NP [address] [place] [address] Social History Tobacco Use Types Packs/Day Years [...] documented as of this encounter Care Teams Hand Stemmer Relationship Specialty Start Date End Date Daija Concepcion NP [address] [place] [address] PCP - General Family Medicine 05/25/23 documented as of this encounter
--- OUTSIDE RECORDS SUMMARY | 2025-07-15 12:18 | XMS_ITS | Encounter Summary ---
Author Organization [employer] Address [address] [facility] [address] [place] [address] Care Team Providers Care Solution Developer Name Role Phone Liliya Martinez LABORER TIN CAN Primary Care Provider Daija Yeboah BRANCH CONTROLLER Primary Care Provider [phone] Reason for Visit * Reason Onset Date Comments Appointment Request 11/30/2022 Encounter Details Date Type Department Care Team ([facility] st Contact Info) Description 11/30/2022 Telephone [facility] [address] [place] [address] Liliya Martinez FNP Appointment Request Social History [...] ( TP ). Please contact pt at [phone] * Telephone Encounter - Monty Holcomb - 11/30/2022 9:14 AM EDT Tc from pt requesting to R/S appt on 11/30/22 ( TP ). Please contact pt at [phone] documented in this encounter Plan of Treatment Not on file documented as of this encounter Visit Diagnoses Not on filedocumented in this encounter Care Teams Solution Developer Relationship Specialty Start Date End Date Liliya Martinez FNP PCP - General Family Medicine 02/17/22 05/24/23 Daija Concepcion NP [address] [place] [address] PCP - General Family Medicine 05/25/23 documented as of this encounter
--- OUTSIDE RECORDS SUMMARY | 2025-07-15 12:18 | XMS_ITS | Encounter Summary ---
Author Organization [employer] Address [address] [facility] [address]t h Floor [place] [id number] Care Team Providers Care Public Administration Teacher Name Role Phone Liliya Martinez Primary Care Provider Lucy vaDaija Jacobo NP Primary Care Provider [phone] Encounter Details Date Type Department Care Team (Late st Contact Info) Description 03/27/2023 Abstract [facility] [address] [place] [address] Liliya Martinez FNP Social History Tobacco Use [...] on filedocumented in this encounter Care Teams Public Administration Teacher Relationship Specialty Start Date End Date Liliya Martinez FNP PCP - General Family Medicine 02/17/22 05/24/23 Daija Concepcion NP [address] [place] [address] PCP - General Family Medicine 05/25/23 documented as of this encounter
--- OUTSIDE RECORDS SUMMARY | 2025-07-15 12:18 | XMS_ITS | Encounter Summary ---
Author Organization [employer] Address [address] [facility] [address] [place] [address] Care Team Providers Care Drainman Name Role Phone Daija Concepcion NP Primary Care Provider [phone] Reason for Visit * Reason Comments Med Refill Encounter Details Date Type Department Care Team ([facility] st Contact Info) Description 04/24/2024 Refill [facility] [address] [place] [address] Daija Concepcion NP [address] [place] [address] Type 2 diabetes mellitus without complication, without long-term current use of insulin ([facility]) Social History Tobacco Use Types [...] without long-term current use of insulin (HCC) documented in this encounter Additional Health Concerns Assessment Noted Time PHQ-9 Depression Total Score: 0 07/25/20 10:00 AM EST documented as of this encounter Care Teams Drainman Relationship Specialty Start Date End Date Daija Concepcion NP [address] [place] [address] PCP - General Family Medicine 05/25/23 documented as of this encounter
--- OUTSIDE RECORDS SUMMARY | 2025-07-15 12:18 | XMS_ITS | Encounter Summary ---
Author Organization [employer] Address [address] [facility] [address]t [place] [address] Care Team Providers Care Pottery Decoration Designer Name Role Phone Daija Concepcion PROCEDURE TECH Primary Care Provider [phone] Encounter Details Date Type Department Care Team (Late st Contact Info) Description 05/12/2025 Results Follow-Up [facility]INE [address] [place] [address] Daija Concepcion NP [address] [place] [address] POCT Glucose, POCT HGB A1C, Basic Metabolic Panel, Albumin, Random Urine W/Creatinine Social History Tobacco Use Types Packs/Day Years [...] documented as of this encounter Care Teams Pottery Decoration Designer Relationship Specialty Start Date End Date Daija Concepcion NP [address] [place] [address] PCP - General Family Medicine 05/25/23 documented as of this encounter
--- OUTSIDE RECORDS SUMMARY | 2025-07-15 12:18 | XMS_ITS | Encounter Summary ---
Author Organization [employer] Address [address] [facility] [address] [place] [address] Care Team Providers Care Accountant Cost Name Role Phone Daija Concepcion NP Primary Care Provider [phone] Reason for Visit * Reason Onset Date Comments Med Refill 12/19/2024 Encounter Details Date Type Department Care Team ([facility] st Contact Info) Description 12/19/2024 Telephone [facility] MED[facility]INE [address] [place] [address] Daija Concepcion NP [address] [place] [address] Med Refill Social History Tobacco Use Types [...] 12.5 MG tablet To be sent to: [id number] [place], [place] - [address] [place] [address] documented in this encounter Plan of Treatment Not on file documented as of this encounter Visit Diagnoses Not on filedocumented in this encounter Additional Health Concerns Assessment Noted Time PHQ-9 Depression Total Score: 0 07/25/20 10:00 AM EST documented as of this encounter Care Teams Accountant Cost Relationship Specialty Start Date End Date Daija Concepcion NP [address] [place] [address] PCP - General Family Medicine 05/25/23 documented as of this encounter
--- OUTSIDE RECORDS SUMMARY | 2025-07-15 12:18 | XMS_ITS | Clinical Summary ---
Author Organization [employer] Address [address] [facility] 7[address] [place] [address] Care Team Providers Care Medical Recruiter Name Role Phone Daija Concepcion MEMO Primary Care Provider [phone] Allergies No known active allergies Medications acetaminophen (Tylenol) 500 MG tablet Take by mouth. Active multivitamin-ir zj-okjlocya-ddn ic acid (Centrum) chewable tablet Chew 1 tablet in the morning. Active loratadine (Claritin) 10 MG tabletIndicatio ns:Seasonal allergies Take 1 tablet (10 mg) by mouth in the morning. 90 tablet 1 01/20/20 23 Active Blood Glucose Monitoring Suppl (FreeStyle [place] Lite) w/Device kitIndications: Type 2 diabetes mellitus without complication, without long-term current use of insulin (HCC) Use to test blood sugar one times daily 1 kit 1 12/19/19 24 Active Alcohol Swabs (Alcohol Prep) 70 % padsIndications :Type 2 diabetes mellitus without complication, without long-term current use of insulin (HCC) USE TO TEST BLOOD SUGAR ONCE DAILY 100 each 11 07/11/20 24 Active FreeStyle lancetsIndicati ons:Type 2 diabetes mellitus without complication, without long-term current use of insulin (HCC) USE TO TEST BLOOD SUGAR ONE TIME DAILY 100 each 07/11/20 24 Active metFORMIN (Glucophage) 500 MG tabletIndicatio ns:Type 2 diabetes mellitus without complication, without long-term current use of insulin (HCC) TAKE 1 TABLET BY MOUTH WITH BREAKFAST AND DINNER 180 tablet 1 04/16/20 25 Active atorvastatin (Lipitor) 10 MG tablet TAKE 1 TABLET(10 MG) BY MOUTH DAILY 90 tablet 04/24/20 25 Active amLODIPine (Norvasc) 5 MG tablet TAKE 1 TABLET(5 MG) BY MOUTH DAILY 90 tablet 05/28/20 25 Active hydroCHLOROthia zide 12.5 MG tabletIndicatio ns:Essential hypertension TAKE 1 TABLET(12.5 MG) BY MOUTH DAILY 90 tablet 1 06/22/20 25 Active aspirin 81 MG chewable tabletIndicatio ns:Essential hypertension Chew 1 tablet (81 mg) Once per day. CHEW AND SWALLOW 1 TABLET(81 MG) BY MOUTH DAILY 90 tablet 1 07/08/20 25 026 Active hydroCHLOROthia zide 12.5 MG tabletIndicatio ns:Essential hypertension TAKE 1 TABLET(12.5 MG) BY MOUTH DAILY 90 tablet 1 12/23/19 25 025 Discontinued aspirin 81 MG chewable tabletIndicatio ns:Essential hypertension CHEW AND SWALLOW 1 TABLET(81 MG) BY MOUTH DAILY 90 tablet 1 12/23/19 25 025 Discontinued(Re order (will not trigger notification to Pharmacy)) Active Problems Problem Noted Date Diagnosed Date Internal hemorrhoids 07/15/2025 Assessment & Plan (07/15/2025 10:26 AM EST): -noted on colonoscopy -asymptomatic -recommend regular fiber intake Screening for colon cancer 09/10/2024 Assessment & Plan (01/07/2025 1:45 PM EDT): -positive Cologuard in Aug 2024 w/ referral to GI placed -discussed importance of completing colonoscopy. Patient is provided [facility]'s phone number and encouraged to call for an appointment. MD will also call GI team to call [...] placed Mixed hyperlipidemia 09/10/2024 Assessment & Plan (07/15/2025 10:26 AM EST): Orders: Basic Metabolic Panel; Future Hepatic Function Panel; Future Lipid Panel, Standard; Future Assessment & Plan (09/10/2024 12:24 PM EST): [...] for osteoporosis screening -obtained flu shot at [place]. Will bring documentation to next appointment -RSV vax order sent to [email or web address] PCV20 vax received in [facility] today -Hepatitis B & C screen ordered today -referred for Seasonal allergies 01/19/2023 Heartburn 01/19/2023 Type 2 diabetes mellitus wit hout complication, without long-term current use of insulin 01/19/2023 Assessment & Plan (07/15/2025 10:26 AM EST): Orders: POCT Hgb A1c POCT Glucose Basic Metabolic Panel; Future Hepatic Function Panel; Future Lipid Panel, Standard; Future Assessment & Plan (01/07/2025 1:41 PM EDT): [...] regurg Essential hypertension 01/12/2023 Assessment & Plan (07/15/2025 10:26 AM EST): Orders: Basic Metabolic Panel; Future Hepatic Function Panel; Future Lipid Panel, Standard; Future Assessment & Plan (01/07/2025 1:40 PM EDT): [...] Encounters Date Type Department Care Team Description 07/15/2025 9:45 AM EST Office Visit [facility] [address] [place] [address] Daija Concepcion NP Essential hypertension (Primary Dx); Mixed hyperlipidemia; Type 2 diabetes mellitus without complication, without long-term current use of insulin (HCC); Leg cramping; Routine health maintenance; Diverticulosis of colon; Internal hemorrhoids 07/15/2025 Travel 07/08/2025 Refill [facility] [address] [place] [address] Daija Concepcion NP Essential hypertension 06/20/2025 Refill [facility] [address] [place] [address] Daija Concepcion NP Essential hypertension 05/26/2025 Refill [facility] [address] [place] [address] Daija Concepcion NP 05/12/2025 Results Follow-Up [facility] [address] [place] [address] Daija Concepcion NP POCT Glucose, POCT HGB A1C, Basic Metabolic Panel, Albumin, Random Urine W/Creatinine 04/23/2025 Orders Only GENERIC EXTERNAL DATA DEPARTMENT Provider, Generic External Data 04/21/2025 Refill [facility] [address] [place] [address] Daija Concepcion NP 04/16/2025 Refill [facility] [address] [place] [address] Daija Concepcion NP Type 2 diabetes mellitus without complication, without long-term current use of insulin ([facility]) 04/15/2025 Telephone [facility] [address] [place] [address] Daija Concepcion NP june recall from Last 3 Months Immunizations Immunization Administration [...] Mass Index 26.85 07/15/2025 9:50 AM EST Plan of Treatment Health Maintenance Due Date Last Done Comments CT Colonography 1955 Colonoscopy 1955 FIT 1955 Sigmoidoscopy 1955 Alcohol/Substance Use Screening 1969 DTaP/Tdap/Td Vaccines (1 - Tdap) 03/29/2024 03/28/2024, 05/05/2006 COVID-19 Vaccine (3 - season) 2025 12/29/2020, 12/01/2020 Lipid Panel 09/17/2025 09/17/2024, 12/18, 07/24/2022 FOBT 09/19/2025 09/19/2024 Depression Screening 01/07/2026 01/07/2025, 01/08/20 Diabetes: Urine Protein Screening 01/07/2026 01/07/2025, 01/02/2024, 01/02/2024 SDOH Screening 01/07/2026 01/07/2025 Diabetes: Hemoglobin A1C 01/12/2026 025, 01/07/2025, 09/10/2024, Additional history exists Mammogram 03/27/2026 03/27/2025, 02/17, 02/27/2023, Additional history exists Diabetes: Foot Exam 07/15/2026 07/15/2025, 07/15/2025, 07/15/2025, Additional history exists Tobacco Screening 07/15/2026 07/15/2025 Eye Exam 01/06/2027 01/06/2025, 12/19, 01/06/2025, Additional history exists Colorectal Cancer Screening 09/19/2027 FIT DNA/Cologuard 09/19/2027 09/19/2024 RSV Patients and Patients Aged 60 years or older (1 - 1-dose 75+ series) 01/04/2032 Hepatitis C Screening Completed 07/24/2022 HPV/Cotest Discontinued 03/01/2023 Cervical Cancer Screening Discontinued Pap Smear Discontinued 03/06/2023, 03/01/2023 Pneumococcal Vaccine: 50+ Years Completed 07/25/2023 Zoster Vaccines Completed 01/09/2025, 05/07/2020 Influenza Vaccine Completed 05/21/2025, , 05/23/2023, Additional history exists HIB Vaccines Aged Out [...] without long-term current use of insulin (HCC) GLUCOSE, WHOLE BLOOD Routine 04/23/2025 1:20 PM EDT BI MAMMOGRAM SCREENING TOMOSYNTHESIS BILATERAL Routine 03/27/2025 [...] Recently Relevant to Health Maintenance Results * (ABNORMAL) POCT Hgb A1c (07/15/2025 9:58 AM EST) Hemoglobin A1C 5.9(A) 4.0 - 5.7 % QC Media Lot # [id number] Lot# Expiration Date 51 Blood 07/15/2025 9:58 AM EST Daija Concepcion NP POINT OF CARE TEST ENTER/EDIT O RDERABLES Final Result * POCT Glucose (07/15/2025 9:52 AM EST) Glucose Blood, POC 106 60 - 200 mg/dL QC Media Lot # [id number] Lot# Expiration Date 7,726 Blood Capillary blood specimen / Unknown 07/15/2025 9:52 AM EST Daija Concepcion NP POINT OF CARE TEST ENTER/EDIT O RDERABLES Final Result * Glucose, Whole Blood (04/23/2025 1:20 PM EDT) Glucose, Whole Blood 87 60 - 115 mg/dL [facility] Comment:METER #: [id number] 04/23/2025 1:20 PM EDT 04/23/2025 1:23 PM EDT Generic External Data Provider LAB BLOOD ORDERAB LES Final Result [facility] [address] [place] [phone] * BI Mammogram Screening Tomosynthesis Bilateral (03/27/2025 1:05 PM EDT) Anatomical Region Laterality Modality Breast Bilateral Mammography 03/27/2025 1:05 PM EDT Narrative 04/06/2025 1:38 PM EDT [facility] [address] [place], [place] [address] Mammography Report Signed Patient: Dixie Zacarias MR# : [id number] : 1955 Acct:[id number] Age/Sex: 70 / F ADM Date: 03/27/25 Loc: HO.MAMMO Attending Dr: Daija Concepcion Ordering Physician: Daija Concepcion Results: 1Negative Date of Service: 03/27/25 Follow Up: 1 Year From Orig inal Mammogram Procedure(s): MM tomosynthesis screening BI Accession Number(s): [id number] cc: Daija Concepcion EXAMINATION: MM SCREENING DIGITAL [...] Daniella Park DO 04/06/2025 01:35 PM EDT Dictated By: Daniella Park DO Signed By: <Electronically signed by Daniella Park DO in OV> 04/06/25 1335 DD/ 1305 TD/TT: 03/27/25 1320 Track Announcer: Procedure Note Donotuseinterpreter, Image - 04/06/2025 [facility] [address] [place] [address] Mammography Report Signed Patient: Dixie Zacarias MMR# : [id number] : 7Acct:[id number] Age/Sex: 70 / FADM Date: 03/27/25 Loc: HO.MAMMO Attending Dr: Daija Cocnepcion Ordering Physician: Daija ConcepcionResults: 1Negative Date of Service: 03/27/25Follow Up: 1 Year From Orig inal Mammogram Procedure(s): MM tomosynthesis screening BI Accession Number(s): [id number] cc: Daija Concepcion EXAMINATION: MM SCREENING DIGITAL [...] Daniella Park DO 04/06/2025 01:35 PM EDT Dictated By: Daniella Park DO Signed By: <Electronically signed by Daniella Park DO in OV> 04/06/25 1335 DD/ 1305 TD/TT: 03/27/25 1320 Track Announcer: Daija Concepcion NP IMG BI PROCEDURES Final Result * Albumin, Random Urine W/Creatinine (01/07/2025 11:55 AM EDT) Creatinine, Urine 35.48 mg/dL [facility] Microalbumin Urine <5.0 mg/L [facility] Microalbum Creatinine Ratio Ur TNP <30 ug/mg cr [facility] Comment:Unable to calculate albumin/creatinine ratio due to lowmicroalbumin or creatinine result. Urine (Urine, Random) 01/07/2025 11:55 AM EDT 01/07/2025 1:01 PM EDT us Daija Jamey DELIVERY STOCK CLERK LAB URINE ORDERABLES Final Resu lt [facility] [address] [place] [address] [phone] * (ABNORMAL) Cologuard?? colon cancer screening (09/19/2024 11:53 AM EST) Cologuard Result Positive( A) Negative 09/27/2024 4:11 AM EST [facility] (CLIA #:[id number]) Comment: POSITIVE TEST RESULT. A positive Cologuard [...] (Naeem Talbert al, N Engl J Med 2014;370(14):4051-7023.) Cologuard may produce a false negative or false positive result (no colorectal cancer or precancerous polyp present at colonoscopy follow up). A negative Cologuard test result does not guarantee the absence of CRC or advanced adenoma (pre-cancer). The current Cologuard screening interval is every 3 years. ([employer] Cancer Society and U.S. Multi-Society Task Force). Cologuard performance data in a 10,000 patient pivotal study using colonoscopy as the reference method can be accessed at the following location: www.RightScale/results. Additional description of the Cologuard test process, warnings and precautions can be found at www.[employer].Roomish. Stool specimen (specimen) 09/19/2024 11:53 AM EST 09/20/2024 12:33 PM EST [facility] DELIVERY STOCK CLERK LAB MOLECULAR DIAGNOSTICS ORDER IMANI Final Result [facility] (CLIA #:[id number]) [address] [place] [address], * (ABNORMAL) Lipid Panel, Standard (09/17/2024 10:11 AM EST) Triglycerides 118 <150 mg/dL [facility] Comment:Desirable Triglyceri de: less than 150 mg/dLBorderline High Triglyceride 150-199 mg/dLHigh Triglyceride: 200-499 mg/dLVery High Triglyceride: greater than or equal to 5OO mg/dL Cholesterol 116 <200 mg/dL [facility] Comment:Desirable Cholestero l: less than 200 mg/dLBorderline High Cholesterol: 200-239 mg/dLHigh Cholesterol: greater than 239 mg/dL LDL Cholesterol Calculated 60 <100 mg/dL [facility] Comment:Desirable LDL: less than 100 mg/dLNear Optimal/Above Optimal LDL: 110- 129 mg/dLBorderline High LDL: 130-159 mg/dLHigh LDL: 160-189 mg/dLVery High LDL: greater than or equal to 190 mg/dL HDL Cholesterol 33(L) >40 mg/dL [facility] Comment:Desirable HDL: great er than 40 mg/dL Note: This HDL assay may give artificially low results in patients with liver disease. Blood Venous blood specimen / Unknown 09/17/2024 10:11 AM EST 09/17/2024 11:25 AM EST Daija Jamey DELIVERY STOCK CLERK LAB BLOOD ORDERABLES Final Resu lt [facility] [address] [place] [phone] * Hm Pap Smear (03/06/2023) Pap Negative for intraephithelial lesion or malignancy Negative for intraephithelial lesion or malignancy, Other Liliya Martinez [facility] Final R esult * HPV mRNA E6/E7 w/Reflex to HPV Genotypes 16, 18/45 (03/01/2023 4:00 PM EDT) HPV nRNA E6/E7 Not Detected Not Detected [facility] Comment:Methodology: Transcr iption-Mediated AmplificationThis assay detects E6/E7 viral messenger RNA (mRNA) from 14high-risk HPV types (16,18,31,33,35,39,45,51,52,56,58,59,66,68).Cervical sources are required for HPV testing.If a vaginal source from a patient who has had atotal hysterectomy with removal of cervix wassubmitted, please contact the testing laboratoryfor alternative testing options.For additional information, please refer tohttp://education.Health Data Vision/faq/AQW253j0(This link if provided for information/educational purposes only.)THIS TEST WAS PERFORMED AT:[facility] [place] [phone] APPIAH MD HPV mRNA E6/E7 [facility] HPV 16 RNA [facility] HPV 18/45 RNA [facility] 03/01/2023 4:00 PM EDT 03/05/2023 11:10 AM EDT Liliya Martinez [employer] [facility] CYTOLOGY ORDERABLES Fi nal Result Performing Organization Address City[facility]/ZIP Co de Phone Number [facility] [address] [place] [address] [phone] * Hepatitis C Antibody with Reflex to HCV, RNA, Quantitative, Real-Time PCR (07/24/2022 10:19 AM EST) Hepatitis C Antibody NON-REACT LAUREL NON-REACT LAUREL [facility] [place] [facility] Index 0.07 <1.00 [facility] [place] Comment: HCV antibody was non-reactive. There is no laboratory evidence of HCV infection. In most cases, no further action is required. However, if recent HCV exposure is suspected, a test for HCV RNA (test code 01965) is suggested. For additional information please refer to http://education.Health Data Vision/faq/SDR63b7 (This link is being provided for informational/ educational purposes only.) 07/24/2022 10:1 9 AM EST 07/24/2022 10:20 AM EST Narrative [facility] - 07/25/2022 9:03 PM EST FASTING:YES FASTING: YES Liliya Martinez [facility] BLOOD ORDERABLES Final Result Performing Organization Address City[facility]/ZIP Co de Phone Number [facility] [address], [place] [address] [facility] [place] [facility] [address], [facility] [place] [address] from Last 3 Months or Most Recently Relevant to Health Maintenance Insurance MEDICARE [facility] Care Teams Medical Recruiter Relationship Specialty Start Date End Date Daija Concepcion NP [address] [place] [phone] PCP - General Family Medicine 05/25/23
--- OUTSIDE RECORDS SUMMARY | 2025-07-15 12:18 | XMS_ITS | Encounter Summary ---
Author Organization [employer] Address [address] [facility] 7t [place] [address] Care Team Providers Care Visitor Services Coordinator Name Role Phone Daija Concepcion FINANCIAL HEALTH COUNSELOR Primary Care Provider [phone] Reason for Visit * Reason Comments Med Refill Encounter Details Date Type Department Care Team ([facility] st Contact Info) Description 07/21/2024 Refill [facility] [address] [place] [address] Daija Concepcion NP [address] [place] [address] Type 2 diabetes mellitus without complication, without long-term current use of insulin ([facility]) Social History Tobacco Use Types Packs/Day [...] documented as of this encounter Care Teams Visitor Services Coordinator Relationship Specialty Start Date End Date Daija Concepcion NP [address] [place] [id number] PCP - General Family Medicine 05/25/23 documented as of this encounter
--- OUTSIDE RECORDS SUMMARY | 2025-07-15 12:18 | XMS_ITS | Encounter Summary ---
Author Organization [employer] Address [address] [facility] [address]t [place] [address] Care Team Providers Care Supervisor Ordnance Truck Installation Name Role Phone Liliya MartinezP Primary Care Provider Lucy vaDaija Jacobo [employer]IC[employer]TY [employer] Primary Care Provider [phone] Encounter Details Date Type Department Care Team (Late st Contact Info) Description 11/15/2022 Orders Only [facility] [address] [place] [address] Cristin Carrasquillo LPN Social History Tobacco Use [...] filedocumented in this encounter Care Teams Supervisor Ordnance Truck Installation Relationship Specialty Start Date End Date Liliya Martinez FNP PCP - General Family Medicine 02/17/22 05/24/23 Daija Concepcion NP [address] [place] [address] PCP - General Family Medicine 05/25/23 documented as of this encounter
--- OUTSIDE RECORDS SUMMARY | 2025-07-15 12:18 | XMS_ITS | Encounter Summary ---
Author Organization [employer] Address [address] [facility] 7t [place] [address] Care Team Providers Care Marquetry Worker Name Role Phone Daija Concepcion PLANT ACCOUNTANT Primary Care Provider [phone] Reason for Visit * Reason Comments Med Refill Encounter Details Date Type Department Care Team ([facility] st Contact Info) Description 02/24/2024 Refill [facility] [address] [place] [address] Daija Concepcion NP [address] [place] [address] Social History Tobacco Use Types Packs/Day Years [...] documented as of this encounter Care Teams Marquetry Worker Relationship Specialty Start Date End Date Daija Concepcion NP [address] [place] [address] PCP - General Family Medicine 05/25/23 documented as of this encounter
--- OUTSIDE RECORDS SUMMARY | 2025-07-15 12:18 | XMS_ITS | Encounter Summary ---
Author Organization [employer] Address [address] [facility] 7t [place] [address] Care Team Providers Care Order Entry Technician Name Role Phone Liliya Martinez Primary Care Provider Lucy Daija Vallecillo NP Primary Care Provider [phone] Reason for Visit * Reason Comments Med Refill Encounter Details Date Type Department Care Team (Late st Contact Info) Description 04/25/2023 Refill [facility] [address] [place] [address] Liliya Martinez FNP Social History Tobacco Use [...] on filedocumented in this encounter Care Teams Order Entry Technician Relationship Specialty Start Date End Date Liliya Martinez FNP PCP - General Family Medicine 02/17/22 05/24/23 Daija Concepcion NP [address] [place] [address] PCP - General Family Medicine 05/25/23 documented as of this encounter
[2025-07-15 14:01] LABS: Alanine Aminotransferase 16 U/L (0-31); Albumin Level 4.5 g/dL (3.5-5.0); Alkaline Phosphatase 85 U/L (39-117); Anion Gap 11 (12-20); Aspartate Amino Transferase 24 U/L (5-31); Blood Urea Nitrogen 19 mg/dL (9-16); Calcium 9.8 mg/dL (8.4-10.2); Carbon Dioxide 29 mmol/L (22-29); Chloride 103 mmol/L (96-108); Cholesterol 134 mg/dL (<200); Estimated Glomerular Filt Rate > 60; HDL Cholesterol 41 mg/dL (>40); Potassium 3.7 mmol/L (3.3-5.1); Sodium 139 mmol/L (135-145); Total Protein 8.1 g/dL (6.5-8.0); Triglycerides 115 mg/dL (<150)
== END 2025-07-15 10:22 | disposition home or self-care (01) ==
LOC: HO.HHCL 10:21
PROVIDERS: PCP Nurse Practitioner; Visit Provider Nurse Practitioner
DX: E11.9 Type 2 diabetes mellitus without complications (principal); I10 Essential (primary) hypertension; E78.2 Mixed hyperlipidemia
CPT/HCPCS: 36415; 80048; 80061; 80076